=== PATIENT | male | born 1940 | race Caucasian/White ===

== ENCOUNTER 2024-01-17 11:45 | Emergency (ER) | payer MEDICARE, SELFPAY ==
[2024-01-17] VITALS (8 sets, daily range): BP systolic 149–210; BP diastolic 80–100; PULSE 71; BMI 23.8
[2024-01-17 12:09] LABS: % Basophils 0.4 % (0-2); % Eosinophils 3.3 % (0-6); % Immature Granulocytes 0.3 % (0-0.5); % Lymphocytes 11.6 % (20.5-51.1); % Monocytes 11.3 % (1.7-9.3); % Neutrophils 73.1 % (42.2-75.2); Absolute Eosinophils 0.3 10^3/uL (0-0.7); Absolute Lymphocytes 1.2 10^3/uL (1.2-3.4); Absolute Monocytes 1.2 10^3/uL (0.1-0.6); Absolute Neutrophils 7.5 10^3/uL (1.4-6.5); Hemoglobin 9.3 g/dL (13.0-18.0); Mean Corp Hgb Conc. 34.4 g/dL (33.0-37.0); Mean Corpuscular Hgb 30.9 pg (27.0-31.0); Mean Corpuscular Volume 89.7 fL (80.0-94.0); Mean Platelet Volume 9.6 fL (7.4-10.4); Nucleated Red Blood Cells % 0 % (-); Platelet Count 314 10^3/uL (130-400); Red Blood Cell Count 3.01 10^6/uL (4.70-6.10); Red Cell Dist. Width 13.7 % (11.5-14.5); White Blood Cell Count 10.3 10^3/uL (4.8-10.8)
[2024-01-17 12:52] LABS: ALT (SGPT) 15 U/L (0-50); AST (SGOT) 23 U/L (17-59); Albumin 2.6 g/dl (3.5-5.0); Alkaline Phosphatase 126 U/L (38-126); Blood Urea Nitrogen 32 mg/dl (9-20); Calcium 8.9 mg/dl (8.4-10.2); Carbon Dioxide 23 mmol/L (22-30); Chloride 107 mmol/L (98-107); Glucose 194 mg/dl (70-99); Potassium 4.6 mmol/L (3.5-5.1); Sodium 137 mmol/L (135-145); Total Bilirubin 1.5 mg/dl (0.2-1.3); Total Protein 5.3 g/dl (6.3-8.2); eGFR 37.35
--- NOTE | 2024-01-17 15:06 | ED.GENMED ---
History of Present Illness
General
Chief Complaint: Social Service Referral
Source: patient, records and family
Time Seen by Provider: 01/17/24 14:18
Travel History
Have you had any contact with someone who has COVID-19?: No
Do you have any symptoms of coronavirus? Fever > 100 degrees, chills, cough, shortness of breath, sore throat, loss of taste or smell, muscle aches, or headache?: No
History of Present Illness
History of Present Illness:
83-year-old male with past medical history of hypertension, CHF, chronic kidney disease, diabetes, previous ID status post double bypass surgery, AAA repair last Tuesday presenting to the emergency department for evaluation after he was discharged
from [facility] on Tuesday, at home has had some generalized weakness and inability to care for himself at his independent living facility. Family was concerned that patient got discharged from the hospital either too
quickly or should have been disposition to a SNF/rehab facility until he was able to care for himself. Family notes that patient has also noticed some bilateral lower extremity edema and patient has expressed some mild shortness of breath since the
surgery. Patient does note that following his AAA repair he did have an acute complication of right acute lower extremity arterial occlusion that required stenting. Patient also had some mild hematuria and had been taken off of his Eliquis due to
anemia following the surgery but has since resumed taking 1/2 tablet of his Eliquis twice daily. Family's biggest concern for bring patient to the ER today was they ultimately were hoping to get him disposition to a rehab/SNF. They did not want to
go back to his old facility due to their unhappiness with the communication from the staff there.
Past History
Past History
ED Past Medical History: Arrthythmia, CHF, HTN, IDDM, ID and Renal failure
ED Past Surgical History: Cardiac, Tonsilectomy and Other (AAA repair)
Social History
Tobacco: Former smoker
Alcohol: None
Drug: None
Personal:
Living: with family
Review of Systems
Review of Systems
All Other Systems: ROS reviewed and negative except as documented in HPI and ROS
Phy Exam
Physical Exam
Physical Exam:
GENERAL: Alert , in no apparent distress
EYE: Clear conjunctiva
NECK: Supple
ENT: o/p clr, mmm.
CARDIAC: Irregularly irregular rate and rhythm, heart rate between 75 and 85 bpm
LUNGS: Clear breath sounds bilaterally, no acute respiratory distress, no wheezes/rales/rhonchi
ABDOMEN: Soft, without focal tenderness, no r/g, no cvat
NEUROLOGICAL: Alert and oriented
SKIN: Warm and dry, skin intact.
MUSCULOSKELETAL: Edema to the bilateral lower extremities up to about one third of the lower leg, easily palpable pedal and tibial pulse to the left leg. Faintly palpable DP and PT pulses on the right which were confirmed with a Doppler. Cap
refill is approximately 2 seconds bilaterally. Sensation is grossly intact to light touch.
PSYCH: Normal and appropriate interaction.
Scores
Heart Failure Risk
Heart Failure Risk Score: Not Applicable
Heart Score for Chest Pain Patients
STEMI patient?: Not applicable
Withdrawal Assessment of Alcohol
Withdrawal Assessment Completed?: Not applicable
Course
Orders/Labs/Results
Orders:
Orders
01/17/24 12:02
CMP [Comprehensive Metabolic Panel] Urgent
Complete Blood Count/With Diff Urgent
NT-proBNP Urgent
Comment: ADD
01/17/24 14:42
Add On- LAB Urgent
Tests Added?: BNP
Case Management Consult ONCE
Case Management Consult: Discharge Planning
PT Consult [Pt Eval And Treat] Urgent
Activity Level: Ambulate
01/17/24 14:43
Electrocardiogram (*1) Urgent
Reason for Study: Shortness of Breath
EKG- Treatment ONCE
CR Chest - 2 Views Urgent
Comment:
Reason For Exam: edema, recent AAA repair
01/17/24 14:57
US Periph Venous LOWER Ext Red Urgent
Comment:
Reason For Exam: edema, recent surgery
01/17/24 15:27
Labetalol HCl [Trandate] 10 mg IV NOW STA
Abnormal Lab Results
01/17/24
12:02
RBC 3.01 L 10^6/uL
(4.70-6.10)
Hgb 9.3 L g/dL
(13.0-18.0)
Hct 27.0 L %
(39.0-52.0)
Absolute Neuts (auto) 7.5 H 10^3/uL
(1.4-6.5)
Absolute Monos (auto) 1.2 H 10^3/uL
(0.1-0.6)
Lymphocytes % 11.6 L %
(20.5-51.1)
Monocytes % 11.3 H %
(1.7-9.3)
BUN 32 H mg/dl
(9-20)
Creatinine 1.8 H mg/dL
(0.7-1.3)
Glucose 194 H mg/dl
(70-99)
Total Bilirubin 1.5 H mg/dl
(0.2-1.3)
Total Protein 5.3 L g/dl
(6.3-8.2)
Albumin 2.6 L g/dl
(3.5-5.0)
01/17/24 12:02
01/17/24 12:02
Vital Signs
Initial and Last Documented VS:
Initial Vital Signs
Temp Pulse Resp BP Pulse Ox
98.1 F 89 20 180/84 97
01/17/24 11:51 01/17/24 11:51 01/17/24 11:51 01/17/24 11:51 01/17/24 11:51
Last Documented Vital Signs
Temp Pulse Resp BP Pulse Ox
98.1 F 67 20 169/80 97
01/17/24 11:51 01/17/24 18:12 01/17/24 18:12 01/17/24 18:12 01/17/24 18:12
MDM/Problems Addressed
Differential Diagnosis Includes:
Anemia, deconditioning secondary to significant surgery, electrolyte disturbance, DVT, CHF, surgical complication
MDM/Problems Addressed:
83-year-old male presenting to the emergency department for evaluation of generalized weakness/fatigue in the setting of recent significant surgery for AAA repair with complication of acute arterial occlusion to the right lower extremity status post
stenting. Family brought patient to this facility as his kidney specialist is located here but also because they were unhappy with the disposition planning at the previous hospital. I reviewed patient's discharge summary which confirms history.
He was discharged with a creatinine of greater than 2 and a hemoglobin of 7.8. Patient did receive a blood transfusion postoperatively while there. Labs have been drawn here from triage which show a hemoglobin of 9.3 and a creatinine of 1.8 which
is closer to patient's baseline. Due to patient being on a subtherapeutic dose of Eliquis we will check an ultrasound to rule out DVT although I feel that this is less likely. I added on further cardiac tests. Case management and physical therapy
were consulted. Disposition pending.
Chronic conditions affecting care: PVD and Kidney disease
Acute Exacerbation and/or Progression of Chronic Illness: PVD
*Radiology
Radiology exam reviewed: radiology read reviewed
*Pulse Oximetry
Patient hypoxic: no
*EKG
Interpreted by ED Provider?: Yes
Comparison EKG: changes noted
Heart Rate: 82
Rate: normal
Rhythm: a-fib
[place]: normal axis
QRS Pattern: right bundle branch block
*Outreach Specialist Interpretation
Rate: normal
Rhythm: a-fib
*Critical Care Note
Total Time (30-74mins, 75-104mins- exclusive of procedures): Not Applicable
Data Reviewed
Review of Other/Old Records Reveals: Labs, Records, Operative Reports and Discharge Summary
Source: patient and records
Comment
Comment:
3:30 PM: Patient's blood pressure continuously elevated on multiple rechecks. 10 mg labetalol IV ordered. On reassessment his blood pressure was significantly improved to 140/70
4:39 PM: Informed by case management that patient was accepted to [facility]. Reports being faxed. Family to take patient from ED to SNF. BNP elevated but appears to be around baseline. Patient on torsemide 20mg QD and will continue this.
US results pending. Once resulted, patient can be discharged to SNF
Patient Management
Discussion with other providers: assisted staff
Escalation/DeEscalation of care consider admission/obs:
US negative for DVT. Patient stable for d/c home. Family to take patient to SNF. Nursing team at SNF contacted and reviewed case. Family happy with plan
ED Attending Note
-
Portions of this chart may have been created with voice recognition software.� Occasional wrong word or��sound alike� substitutions may have occurred due to the inherent limitations of voice recognition software.
Discharge Plan
Departure
Patient Disposition: Senior Living/SNF
Date of Disposition: 01/17/24
Time of Disposition: 16:43
Patient with high blood pressure during this ER visit?: Yes
Discharge Problem:
Generalized weakness, Hypertension
Instructions: BLOOD PRESSURE
Prescriptions:
No Action
insulin glargine [Lantus U-100 Insulin] 100 unit/mL Solution
20 unit SC DAILYPRN PRN (Reason: blood sugar)
polyethylene glycol 3350 [Miralax] 17 gram Powder In Packet
17 g PO DAILYPRN PRN (Reason: constipation)
cyanocobalamin (vitamin B-12) 1,000 mcg Tablet
1,000 mcg PO DAILY
hydralazine 25 mg Tablet
25 mg PO BID
famotidine [Pepcid] 20 mg Tablet
20 mg PO DAILY
tamsulosin [Flomax] 0.4 mg Capsule
0.4 mg PO DAILY
diltiazem HCl 120 mg Capsule,Extended Release 24 Hr
120 mg PO HS
cholecalciferol (vitamin D3) [Vitamin D3] 25 mcg (1,000 unit) Tablet
25 mcg PO DAILY
Eliquis 2.5 mg Tablet
2.5 mg PO BID
Trelegy Ellipta 100-62.5-25 mcg Blister With Device
1 inh INHALATION R DAILY
Ozempic 1 mg/dose (4 mg/3 mL) Pen Injector
1 mg SC TH
torsemide 20 mg Tablet
20 mg PO DAILY
atorvastatin [Lipitor] 10 mg Tablet
10 mg PO DAILY
losartan 25 mg Tablet
25 mg PO DAILY
bupropion HCl [Wellbutrin] 75 mg Tablet
150 mg PO DAILY
Referrals:
Pedro Andrew MD [Family Provider] -
Interventions
Interventions:
*Risk Screen - Suicide Last Done: 01/17/24 15:16
*General Assessment Last Done: 01/17/24 15:14
*Neglect/Abuse Screening Last Done: 01/17/24 15:17
*ED COVID-19 Vaccine History Last Done: 01/17/24 11:51
*Nursing Disposition Last Done: 01/17/24 18:12
ED-Psychological Assessment Last Done: 01/17/24 15:52
Discharge Date and Time
Discharge Date/Time: 01/17/24 18:00
Print Language: JAPANESE
[2024-01-17] MEDS: TRANDATE 10 MG IV (15:34)
--- NOTE | 2024-01-17 16:11 | CM ---
Addendum entered by Marisol Morales RN 01/17/24 16:47:
Spoke with Shira, [facility]; they are able to accept the patient today. They will need the nurse to call report to [phone], and med list & d/c summary faxed to [phone]. Shira spoke with patient's son Gerardo by phone to
discuss the prior admission details/dates. She is aware that the family will provide transport to SNF by their vehicle.
Spoke with son Gerardo (ph [phone]); he agrees to [facility] today and will transport patient in his car.
Spoke with nurse Anni Tang; she is aware that the SNF needs report called, and family will transport to SNF.
Spoke with ED Program Review Director; he is aware that the SNF needs the med list & d/c summary faxed to [phone].
Plan [facility] today with family transporting.
Original Note:
Patient who resides at [facility] here in ED for rehab placement. PT recommends skilled rehab.
Met with patient, his son Gerardo and Mabel Lilly;
the patient resides alone in an apartment at [facility].
He was discharged from [facility] in [facility] on 01/14 after having a AAA repair.
He has been weak and wobbly at home and unable to care for himself.
The patient/family are hoping he can be placed in a SNF for short term rehab somewhere between [facility].
The patient's only DME is a SPC.
He was not set up with VN from the prior hospital.
Discussed local SNFs and provided ratings. - 6 SNF referrals made.
Spoke with Shira, [facility]; she was made aware that is hoping to place the patient at SNF today from the ED, and she will review/respond to the referral today.
Plan follow up with [facility] for acceptance.
[2024-01-17 16:39] LABS: NT-proBNP 12700 pg/ml
== END 2024-01-17 18:00 ==
LOC: EMR 11:45
PROVIDERS: Emergency Medicine; EMERGENCY PHYSICIAN Student in an Organized Health Care Education/Training Program; FAMILY PHYSICIAN Internal Medicine
DX: R53.1 Weakness (principal); I13.0 Hypertensive heart and chronic kidney disease with heart failure and stage 1 through stage 4 chronic kidney disease, or unspecified chronic kidney disease; E11.22 Type 2 diabetes mellitus with diabetic chronic kidney disease; I50.9 Heart failure, unspecified; R60.0 Localized edema; N18.9 Chronic kidney disease, unspecified; E11.51 Type 2 diabetes mellitus with diabetic peripheral angiopathy without gangrene; I25.2 Old myocardial infarction; I71.40 Abdominal aortic aneurysm, without rupture, unspecified; Z60.2 Problems related to living alone; Z86.79 Personal history of other diseases of the circulatory system; Z87.891 Personal history of nicotine dependence
CPT/HCPCS: 99284; 96374; 71046; 80053; 83880; 85025; 93005; 93970

== ENCOUNTER 2024-05-24 12:53 | Outpatient (RCR) | payer MEDICARE, SELFPAY ==
[2024-05-24] MEDS: FERAHEME 117 MG IV (13:30)
[2024-05-24 13:37] VITALS: BP 163/75
[2024-05-24 14:32] VITALS: BP 171/73
[2024-05-24 14:34] VITALS: BP 173/72
== END 2024-05-25 08:37 | disposition home or self-care (01) ==
LOC: OID 12:53
PROVIDERS: ATTENDING PHYSICIAN Internal Medicine; FAMILY PHYSICIAN Internal Medicine
DX: N18.4 Chronic kidney disease, stage 4 (severe) (principal); N25.81 Secondary hyperparathyroidism of renal origin; R80.9 Proteinuria, unspecified; I10 Essential (primary) hypertension; D64.9 Anemia, unspecified; I48.0 Paroxysmal atrial fibrillation; Z79.01 Long term (current) use of anticoagulants
CPT/HCPCS: 96365; Q0138

== ENCOUNTER 2024-05-31 12:59 | Outpatient (RCR) | payer MEDICARE, SELFPAY ==
[2024-05-31] MEDS: NSS 250 IV (13:24)
[2024-05-31] MEDS: FERAHEME 117 MG IV (13:25)
[2024-05-31 13:31] VITALS: BP 138/52
== END 2024-06-01 11:18 | disposition home or self-care (01) ==
LOC: OID 12:59
PROVIDERS: ATTENDING PHYSICIAN Internal Medicine; FAMILY PHYSICIAN Internal Medicine
DX: N18.4 Chronic kidney disease, stage 4 (severe) (principal); R80.9 Proteinuria, unspecified; D64.9 Anemia, unspecified
CPT/HCPCS: 96361; 96365; Q0138

== ENCOUNTER → 2024-09-25 10:12 | Outpatient (REF) | payer MEDICARE, SELFPAY | LOC: HWRAD 10:12 | PROVIDERS: ATTENDING PHYSICIAN Internal Medicine; FAMILY PHYSICIAN Internal Medicine | DX: N18.4 Chronic kidney disease, stage 4 (severe) (principal) | CPT/HCPCS: 93975 ==

== ENCOUNTER 2025-05-29 22:03 | Inpatient (IN) | payer MEDICARE, SELFPAY ==
[2025-05-29 17:11] VITALS: BP 175/105
[2025-05-29 17:30] LABS: Hematocrit 29.2 % (39.0-52.0); Hemoglobin 10.1 g/dL (13.0-18.0); Mean Corp Hgb Conc. 34.6 g/dL (33.0-37.0); Mean Corpuscular Volume 90.4 fL (80.0-94.0); Nucleated Red Blood Cells % 0 % (-); Platelet Count 237 10^3/uL (130-400); Red Cell Dist. Width 13.6 % (11.5-14.5)
[2025-05-29 18:02] LABS: ALT (SGPT) 11 U/L (0-50); AST (SGOT) 18 U/L (17-59); Albumin 3.2 g/dl (3.5-5.0); Alkaline Phosphatase 145 U/L (38-126); Blood Urea Nitrogen 28 mg/dl (9-20); Calcium 8.4 mg/dl (8.4-10.2); Carbon Dioxide 24 mmol/L (22-30); Chloride 88 mmol/L (98-107); Glucose 126 mg/dl (70-99); Potassium 5.3 mmol/L (3.5-5.1); Sodium 117 mmol/L (135-145); Total Protein 5.8 g/dl (6.3-8.2); eGFR 20.94
[2025-05-29 18:17] VITALS: BP 173/65
[2025-05-29 18:30] VITALS: BP 160/69
[2025-05-29 19:00] VITALS: BP 166/73
--- NOTE | 2025-05-29 19:27 | ED.GENMED ---
History of Present Illness
General
Chief Complaint: Abdominal Symptoms
Source: patient
Exam Limitations: none
Time Seen by Provider: 05/29/25 19:01
Nursing documentation reviewed up to this point in time: agreed with
History of Present Illness
History of Present Illness:
Note:
CHIEF COMPLAINT(S)
Nausea and constipation
HISTORY OF PRESENT ILLNESS
The patient is an 84-year-old male presenting with nausea and constipation. The patient reports vomiting three times a few days ago, which he attributes to something he ate. He denies diarrhea. The patient has not been consuming much liquids or
eating regularly. The patient reports feeling tired and constipated but denies any pain. He mentions consistent strength training by going to the gym twice a week, indicating good baseline strength. The primary reason for the visit was the sensation
of 'stringiness' related to his bowel movements, indicating constipation and possibly incomplete bowel evacuation. The patient has a known history of stage four chronic kidney disease. His serum sodium level is critically low at 117 mmol/L, which he
has not experienced before.
CHRONIC MEDICAL CONDITIONS SIGNIFICANTLY AFFECTING CARE
- Stage four chronic kidney disease
PHYSICAL EXAM
General: The patient is alert and not in acute distress.
Skin: Warm, dry.
Head: Normocephalic, atraumatic.
Neck: Supple, trachea midline.
Eye Ears, nose, mouth and throat: Oral mucosa moist.
Cardiovascular: Normal peripheral perfusion, No edema.
Respiratory: Respirations are non-labored.
Gastrointestinal: Abdomen nondistended.
Back: Normal range of motion, Normal alignment.
Musculoskeletal: Normal range of motion, normal strength.
Neurological: Alert and oriented to person, place, time, and situation, No focal neurological deficit observed.
Psychiatric: Cooperative, appropriate mood & affect.
PROBLEM LIST
Acute:
- Hyponatremia
- Constipation
- Nausea
Chronic:
- Stage four chronic kidney disease
PLAN
- Administer intravenous fluids to address hyponatremia.
- Admit the patient to the hospital for further management and observation.
- Perform a computed tomography scan of the abdomen to evaluate the cause of constipation and assess for any potential obstructive pathology.
- Obtain a urine sample for further evaluation.
DIFFERENTIAL DIAGNOSIS
The Differential Diagnosis includes, in no particular order and is not limited to:
1. Hyponatremia due to chronic kidney disease
2. Dehydration
3. Acute or chronic intestinal obstruction
4. Gastroenteritis
5. Medication side effects (if applicable)
6. Secondary to dietary intake
7. Dysmotility disorders
8. Malabsorption syndromes
9. Uremia due to chronic kidney disease
10. Adverse effects of diuretics (if the patient was on them previously)
CARE-UPDATE
05/29/25 - 23:56
3% normal saline initiated at 20 mL/hour following discussion with Dr. Boyle, leather tanner, due to no acute findings in CT a/p.
Disposition:
SUMMARY OF ENCOUNTER
The patient, an 84-year-old male, was evaluated in the emergency department due to concerns over nausea, vomiting, and constipation. Notable attention was given to his serum sodium level, critically low at 117 mmol/L, suggestive of acute
hyponatremia. He also reported urinary retention, and further analysis indicated acute on chronic renal failure potentially exacerbated by dehydration and inadequate fluid intake. Given the patients history of stage four chronic kidney disease and
current acute issues, it was decided to admit him for close monitoring, intravenous fluid administration, and further evaluation.
DISPOSITION
Admit
MANAGEMENT OF THE PATIENTS CARE WAS DISCUSSED WITH
Care was discussed with Dr. Boyle, a leather tanner, to manage the patients hyponatremia and kidney function.
PLAN
- Initiate intravenous fluids, specifically 3% normal saline, to address hyponatremia, in collaboration with nephrology.
- Admit the patient for further evaluation and management, including close monitoring of renal function.
- Conduct a CT scan of the abdomen to further investigate the cause of constipation and evaluate for potential obstructions.
INDEPENDENT REVIEW OF LABS AND INTERPRETATION OF TESTS
My independent review of the BMP indicates acute hyponatremia with a serum sodium level at 117 mmol/L and decreased renal function consistent with prior chronic kidney disease findings.
MEDICAL DECISION MAKING
- Complexity of Data Reviewed: Chronic conditions affecting care include stage four chronic kidney disease. Differential diagnosis includes hyponatremia due to chronic kidney disease, dehydration, acute or chronic intestinal obstruction among others.
- Data:
- Category 1: Labs, including BMP, reviewed to assess the patients electrolyte imbalances and renal function decline.
- Category 3: Discussion of management with nephrology regarding fluid administration and further plan of care.
DIAGNOSIS
- Acute hyponatremia (ICD-10: E87.1)
- Urinary retention (ICD-10: R33.8)
- Acute on chronic renal failure (ICD-10: N17.9)
Past History
Past History
ED Past Medical History: Arrthythmia, CHF, HTN, IDDM, OR and Renal failure
ED Past Surgical History: Cardiac, Tonsilectomy and Other (AAA repair)
Social History
Tobacco: Former smoker
Alcohol: None
Drug: None
Personal:
Living: with family
Phy Exam
Physical Exam
Physical Exam:
.
Course
Orders/Labs/Results
Orders:
Orders
05/29/25 Dinner
1800 calorie (15 carb) Diabetic
At Your Request: Full Participation
Fluid Restriction: 1200 mL/day (40 oz)
Diabetic Diet: Potassium, 2 Gram
05/29/25 17:20
CMP [Comprehensive Metabolic Panel] Urgent
Complete Blood Count/With Diff Urgent
Serum Osmolality Urgent
Comment: ADD ON
05/29/25 19:19
Electrocardiogram (*1) Stat
Reason for Study: Other
Other Reason for Exam: hyponatremia
Electrocardiogram (*1) Urgent
Reason for Study: Other
Other Reason for Exam: hyponatremia
EKG- Treatment ONCE
05/29/25 19:20
CT Abd/pel Without Iv Or Oral Urgent
Comment:
Reason For Exam: constipation, lower abd discomfort
05/29/25 19:29
Osmolality, Random Urine Urgent
Date Specimen was Collected: 05/29/25
Time Specimen was Collected: 19:23
Urinalysis Reflex To Culture Urgent
Date Specimen was Collected: 05/29/25
Time Specimen was Collected: 19:23
Urine Microscopic Reflex Cult Urgent
Urine Sodium Urgent
Date Specimen was Collected: 05/29/25
Time Specimen was Collected: 19:23
Urine Culture Urgent
SARAH Source: U
Specimen Description:
Date Specimen was Collected: 05/29/25
Time Specimen was Collected: 19:23
05/29/25 19:31
Bladder Scan- Treatment ONCE
05/29/25 20:46
Bhakta Placement- Treatment ONCE
Reason for insertion: Acute Retention
05/29/25 21:26
Admit/Transfer Patient As Directed
Co-Sign Provider:
Level of Care: Inpatient admission
Assign to:: IMU- Intermediate Care
Physician / Group: Yoel
Diagnosis: Hyponatremia
Reason for Hospitalization: Hyponatremia, SANDRA on CKd
Expected length of stay greater than two midnights?: Yes
ELOS- Estimated Length of Stay in days: 2
I certify the patient meets the requirements for IP care: Yes
PRN Pain Medication Management As Directed
May give lesser potent ordered pain med per pt: Yes
preference::
Protocol:: Medication orders for pain may be administered in a
manner that supports deferring to patient preference
when the pt is:
- Requesting an ordered lesser potent pain medication.
Least to most potent pain medications are defined
as: acetaminophen < NSAID < tramadol < opioids
(morphine, oxycodone, hydromorphone).
- Requesting a lesser dose of the same medication IF
ORDERED.
- Requesting a less intrusive route of administration
if both routes are prescribed by the provider (PO <
IV).
05/29/25 21:28
Code Status As Directed
Resuscitation Status: Full Code
05/29/25 22:00
3% Sodium Chloride 250 ml [Sodium Chloride 3%] 250 ml IV ONCE
05/29/25 22:02
Osmolality, Random Urine Stat
Date Specimen was Collected: 05/29/25
Time Specimen was Collected: 22:00
05/29/25 22:45
Acetaminophen [Tylenol] 650 mg PO Q4HPRN PRN
Bisacodyl [Dulcolax] 10 mg RECTAL [id number] PRN
CefTRIAXone [Rocephin] 1,000 mg IV NOW STA
Docusate W/Senna [Senokot-S] 1 tablet PO BIDPRN PRN
HydrALAZINE [Apresoline] 10 mg IV Q6HPRN PRN
HydrALAZINE [Apresoline] 50 mg PO TID
Ipratropium/Albuterol Sulfate [Duoneb] 3 ml INH R Q4HPRN PRN
Ondansetron Injectable [Zofran] 4 mg IV Q6HPRN PRN
Polyethylene Glycol Powder [Miralax] 17 grams PO DAILYPRN PRN
05/29/25 22:45
Echo 2D MMode Color/Doppler Routine
Reason for Study: atrial fibrillation
NEPHROLOGY CONSULT Routine
Consulting Provider: Robin Whitmore V.
Was physician already notified: Yes
VTE Contraindication Routine
VTE Mechanical Device Contraindication: Medical Contraindication
Pharmocologic Contraindication: Medical Contraindication
Activity As Directed
Activity Level: With Assistance
Bedside Glucose Monitoring As Directed
Frequency: AC&HS
Bhakta Catheter [Catheter- Indwelling] As Directed
Reason for insertion: Acute Retention
Discontinue Date/Time: 06/01/25 0600
Intake/ Output As Directed
Frequency: Per unit guidelines
Vital Signs As Directed
Frequency: Per unit guidelines
Weight As Directed
Frequency: Daily
Pulse Ox/spot Check [RESP] Routine
Quantity: 1
05/29/25 23:45
Basic Metabolic Panel Q6H
05/30/25 06:00
Complete Blood Count/No Diff IN AM
Cortisol, Random IN AM
Magnesium IN AM
TSH Reflex To Free T4 IN AM
05/30/25 07:30
Insulin Aspart Corrective Low [Novolog Flexpen-Low Resistance] See Protocol SC AC
05/30/25 08:00
Apixaban [Eliquis] 2.5 mg PO BID
Atorvastatin [Lipitor] 20 mg PO DAILY
Cholecalciferol (Vitamin D3) [VITAMIN D3 (cholecalciferol)] 25 mcg PO DAILY
Famotidine [Pepcid] 20 mg PO BID
Tamsulosin [Flomax] 0.4 mg PO DAILY
05/30/25 22:00
CefTRIAXone [Rocephin] 1,000 mg IV Q24H
Abnormal Lab Results
05/29/25 05/29/25 05/29/25
17:20 19:29 22:02
WBC 13.1 H 10^3/uL
(4.8-10.8)
RBC 3.23 L 10^6/uL
(4.70-6.10)
Hgb 10.1 L g/dL
(13.0-18.0)
Hct 29.2 L %
(39.0-52.0)
MCH 31.3 H pg
(27.0-31.0)
Abs Immat Gran (auto) 0.1 H 10^3/uL
(0-0.05)
Absolute Neuts (auto) 10.0 H 10^3/uL
(1.4-6.5)
Absolute Monos (auto) 1.1 H 10^3/uL
(0.1-0.6)
Immature Gran % 0.6 H %
(0-0.5)
Neutrophils % 76.6 H %
(42.2-75.2)
Lymphocytes % 12.9 L %
(20.5-51.1)
Sodium 117 L* mmol/L
(135-145)
Potassium 5.3 H mmol/L
(3.5-5.1)
Chloride 88 L mmol/L
(98-107)
BUN 28 H mg/dl
(9-20)
Creatinine 2.9 H mg/dL
(0.7-1.3)
Glucose 126 H mg/dl
(70-99)
Serum Osmolality 258 L mOsm/kg
(275-300)
Alkaline Phosphatase 145 H U/L
(38-126)
Total Protein 5.8 L g/dl
(6.3-8.2)
Albumin 3.2 L g/dl
(3.5-5.0)
Ur Occult Blood Reflex 1+ A
(Negative)
Leukocyte Esterase Rfl 3+ A
(Negative)
Urine RBC 3-6 A /HPF
(0-2)
Urine Bacteria (Reflex) Many A
(Negative)
Urine Osmolality 116 L mOsm/kg 119 L mOsm/kg
(300-900) (300-900)
Urine Sodium 23 L mmol/L
(30-90)
Urine Albumin (Reflex) 2+ A
(Neg - Trace)
05/29/25 17:20
05/29/25 17:20
Vital Signs
Initial and Last Documented VS:
Initial Vital Signs
Temp Pulse Resp BP Pulse Ox
98.0 F 64 20 175/105 99
05/29/25 17:11 10/01/25 17:11 05/29/25 17:11 05/29/25 17:11 05/29/25 17:11
Last Documented Vital Signs
Temp Pulse Resp BP Pulse Ox
97.6 F 73 15 180/68 98
05/29/25 22:58 05/29/25 22:30 05/29/25 22:30 05/29/25 19:30 05/29/25 22:30
*Pulse Oximetry
SaO2: 99
Patient hypoxic: no
*Critical Care Note
Total Time (30-74mins, 75-104mins- exclusive of procedures): 34
comment:
Critical care statement: A total of 34 minutes of critical care time was provided for this patient. This includes management of unstable vital signs, evaluation of the patient at bedside, reviewing the patient's pertinent medical records, discussion
with consultants, review of old EKGs and review of pertinent medical records. This time with separate from time utilized to perform the aforementioned documented procedures
ED Attending Note
-
Portions of this chart may have been created with voice recognition software.� Occasional wrong word or��sound alike� substitutions may have occurred due to the inherent limitations of voice recognition software.
Discharge Plan
Departure
Patient Disposition: Admit
Date of Disposition: 05/29/25
Time of Disposition: 20:47
Admit to: ICU
Presentation/result/management discussed w/ accepting MD/DO: Hospitalist
Patient with high blood pressure during this ER visit?: Yes
Condition: Fair
Discharge Problem:
Acute hyponatremia, Acute on chronic kidney failure, Acute hyperkalemia, Constipation, Acute urinary retention
Interventions
Interventions:
*Risk Screen - Suicide Last Done: 05/29/25 22:56
*General Assessment Last Done: 05/29/25 17:11
*Neglect/Abuse Screening Last Done: 05/29/25 22:56
*ED- Fall Risk Assessment Last Done: 05/29/25 22:56
*ED COVID-19 Vaccine History Last Done: 05/29/25 22:56
*ED Influenza Vaccine History Last Done: 05/29/25 22:56
*Nursing Disposition Last Done: 05/29/25 22:56
MZ-Hciehk-Gctjooxgny Assessment Last Done: 05/29/25 21:25
[2025-05-29 19:30] VITALS: BP 180/68
[2025-05-29 19:37] LABS: Urine Character Slightly Cloudy (Clear)
[2025-05-29 19:45] LABS: Urine Squamous Cell 0-2 /LPF (Few)
--- NOTE | 2025-05-29 20:58 | HPS.HSE ---
Family Physician
-
Family Physician: NOT KNOW UNKNOWN - PT DOES
Chief Complaint
-
Abdominal symptoms
History of Present Illness
This is a 84-year-old male with past medical history significant for CAD status post CABG, hypertension, hyperlipidemia, CKD with baseline creatinine around 2.0, on anticoagulation for prior CVAs, COPD presenting to the emergency department with
constipation, urinary symptoms and feeling of dehydration.
Patient and family reports that they have been having urinary symptoms for a few weeks now particularly 2 weeks. He has had constipation. He is to the nocturia reports going to the bathroom about once every hour overnight. Over the last 2 to 3
days he has been trying to hydrate himself at night drinking diluted crystal lemonade. He is unable to tell me exactly how many carbs he takes overnight. He denies abdominal pain, distention, nausea or vomiting. He denies having fevers. Son
reports that patient may have had chills because when he visited him yesterday he is thermostat was set to over 80 �F.
In the emergency department was able to void and reported to void 800 mL with residual of 343ml.
Patient reports that that he often gets indication of atrial fibrillation on his home monitor but he denies any official diagnosis of A-fib in the past. He denies palpitations lightheadedness dizziness. He denies having any chest pain. He denies
ankle swelling. He denies shortness of breath or dyspnea on exertion.
In the ED was hypertensive to 173/80 with a pulse rate of 56 and was satting 97% on room air. ECG with rate controlled atrial fibrillation and right bundle. White count was 10.1 hemoglobin 10.1 and platelet count of 237. Sodium was notable at 117
with a potassium of 5.3. BUN and creatinine where 28 and 2.9. Glucose was 126. Serum osmolality was low. UA was markedly positive. Urine sodium was 23 with a urine osmolality of 110.
CT of the abdomen was unremarkable: No renal or ureteral calculus. No bladder calculus. No obstructive uropathy. Bilateral renal cysts. Small amount of gas within the bladder. Possible considerations include iatrogenic, infection by gas producing
organism, or enterovesical fistula.
Diverticulosis without acute diverticulitis. No bowel obstruction. No evidence to suggest significant constipation.
COPD.
Aortic aneurysm with [place] aneurysm sac 5.5 cm. Bifurcated endovascular stent graft in place.
Medical History
Past Medical History
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
years ago. )
Past Surgical History: Reports Cardiac (X2 vessel repair 7 years ago) and Other (superfical vein surgery to foot per patient)
Social History
Tobacco: Former Smoker (45-year 1 pack/day stopped 2 months ago June 2022)
Alcohol: None
Drug: None
Personal: Single
Employment: Retired
Family History
Family History: CAD (Mother age 80 [place])
Allergies / Home Medications
Allergies reflects when Allergies were last updated in [facility].
Home Medications with original date entered in [facility]
Allergy/Medication List:
Allergies
Allergy/AdvReac Type Severity Reaction Status Date / Time
No Known Allergies Allergy Verified 05/29/25 17:11
Home Medications
apixaban 2.5 mg tablet (Eliquis) 2.5 mg PO BID 01/17/24
cholecalciferol (vitamin D3) 25 mcg (1,000 unit) tablet (Vitamin D3) 25 mcg PO DAILY 01/17/24
famotidine 20 mg tablet (Pepcid) 20 mg PO BID 01/17/24
fluticasone fur. 100 mcg-umeclid 62.5 mcg-vilant 25 mcg inhalat.powder (Trelegy Ellipta) 1 inh inhalation R DAILY 01/17/24
semaglutide 1 mg/dose (4 mg/3 mL) subcutaneous pen injector (Ozempic) 1 mg SC TH 01/17/24
tamsulosin 0.4 mg capsule (Flomax) 0.4 mg PO DAILY 01/17/24
atorvastatin 20 mg tablet (Lipitor) 20 mg PO DAILY 05/29/25
hydralazine 50 mg tablet 50 mg PO BID 05/29/25
losartan 100 mg tablet 100 mg PO DAILY 05/29/25
Medications on admission are unable to be verified or confirmed at this time.
Review of Systems
-
History Source: Patient and Family
Constitutional: Reports No Symptoms
EENT: Reports No Symptoms
Respiratory: Reports No Symptoms
Abdomen/GI: Reports Constipated
: Reports Frequency
Musculoskeletal: Reports No Symptoms
Skin: Reports No Symptoms
Neurological: Reports No Symptoms
Endocrine: Reports No Symptoms
Hematologic/Lymphatic: Reports No Symptoms
Psych: Reports No Symptoms
Physical Exam
Vital Signs
Vital Signs
Temp Pulse Resp BP Pulse Ox
98.0 F 56 26 173/65 99
05/29/25 17:11 05/29/25 18:27 05/29/25 18:17 05/29/25 18:17 05/29/25 19:28
Physical Exam
General: No Apparent Distress, Comfortable and Conversant; No Fever or Chills
HEENT: NormoCephalic, Anicteric, Moist mucous membranes, PERRLA and [place] Conjunctivae
Respiratory: Rales (Fine bilateral bases)
Cardiac: S1/S2 and Irregular Rhythm; No Murmur, Rub, Gallop, Peripheral Edema or JVD
Breast: Deferred by me
GI: Soft, Non Tender, Non Distended, Normal Bowel Sounds and No Hepatosplenomegaly
Rectal: Deferred by Provider
Genito-urinary: Deferred by me
Musculoskeletal: No Clubbing, No Cyanosis and No Edema
Skin: Warm and Dry; No Rash or Jaundice
Neuro: AO x 3, No Motor Deficits, Nonfocal/grossly intact and No Sensory Deficits; No Slurred Speech, Facial Droop or Tremors
Psych: Calm
Laboratory Results
-
05/29/25 17:20
05/29/25 17:20
Laboratory Results
Total Bilirubin 0.7 mg/dl (0.2-1.3) 05/29/25 17:20
AST 18 U/L (17-59) 05/29/25 17:20
ALT 11 U/L (0-50) 05/29/25 17:20
Alkaline Phosphatase 145 U/L (38-126) H 05/29/25 17:20
Data Reviewed
-
CT Scan: Report Reviewed by me
Medical Tests (Nuc Med, Echo, EKG etc): Image Personally Visualized and interpreted
Lab Data: Labs Reviewed by me
Old Records: Reviewed
Impression/Plan
-
IMPRESSION:
This is a 84-year-old with past medical history significant for CKD with baseline creatinine of around 2.5, prior CVA on anticoagulation with apixaban, BPH, COPD not on home O2, hypertension, CAD status post CABG, history of CHF who presents to the
emergency department with complains of constipation as well as urinary frequency was found to be SANDRA with severe hyponatremia. Patient is alert and oriented x 3. No focal neurological deficits.
PLAN:
Hyponatremia -suspect multifactorial. SANDRA in the setting of urinary retention, self hydration with hypotonic fluids and possibly SIADH. He is hypertensive. Likely euvolemic to hypervolemic.
-Admit to IMU
-Discussed with nephrology
-Urinary catheter placed
-Started on hypertonic saline 3%
-BMP every 4 to 6 hours
-His urine is currently very dilute appearing which may be a post obstructive diuresis versus polyuria from correction of his hyponatremia
-Fluid restriction
-Orthostatic vital signs, check TSH
-Nephrology consulted
Urinary retention -positive UA, greater than 300 cc postvoid residual after 800. Patient on tamsulosin presumed for BPH
- Urinary catheter placed
- Urine and blood cultures
- Start IV ceftriaxone
- Continue tamsulosin
- Monitor for bleeding
Atrial fibrillation -resumed new onset although patient reports seeing indication of atrial fibrillation on his monitor at home. No prior diagnosis. He is rate controlled with a pulse in the 50s to 60s.
- Continue his Eliquis for now
- No indication for additional rate agent
- Get echocardiogram
- Cardiology consult
Hypertension
- Continue hydralazine to 3 times daily
- Hold losartan for now
COPD -stable
-Continue Trelegy
DVT prophylaxis�on apixaban
CODE STATUS�full code
[2025-05-29] MEDS: SODIUM CHLORIDE 3% 250 IV (22:03)
[2025-05-29 22:58] VITALS: BMI 25.0
[2025-05-29 23:01] VITALS: BP 182/55
[2025-05-29] MEDS: APRESOLINE 50 MG PO (23:50)
[2025-05-29] MEDS: ROCEPHIN 1000 MG IV (23:51)
[2025-05-29] MEDS: STERILE WATER FOR INJECTION 10 ML IV (23:51)
[2025-05-30] VITALS (17 sets, daily range): BP systolic 80–196; BP diastolic 44–96; BMI 25.0
[2025-05-30 00:19] LABS: Glucose - Point of Care 108 mg/dl (70-99)
[2025-05-30 01:52] LABS: Blood Urea Nitrogen 29 mg/dl (9-20); Calcium 8.8 mg/dl (8.4-10.2); Carbon Dioxide 29 mmol/L (22-30); Chloride 93 mmol/L (98-107); Estimated Creatinine Clearance 15 ml/min; Glucose 107 mg/dl (70-99); Potassium 5.5 mmol/L (3.5-5.1); Sodium 124 mmol/L (135-145); eGFR 20.94
[2025-05-30 04:55] LABS: Hematocrit 29.3 % (39.0-52.0); Hemoglobin 10.2 g/dL (13.0-18.0); Mean Corp Hgb Conc. 34.8 g/dL (33.0-37.0); Mean Corpuscular Volume 90.2 fL (80.0-94.0); Platelet Count 252 10^3/uL (130-400); Red Cell Dist. Width 13.6 % (11.5-14.5)
[2025-05-30 05:13] LABS: Magnesium 2.2 mg/dl (1.6-2.3)
[2025-05-30 05:45] LABS: Cortisol, Random 15.7 ug/dl
[2025-05-30 06:38] LABS: Blood Urea Nitrogen 28 mg/dl (9-20); Calcium 9.0 mg/dl (8.4-10.2); Carbon Dioxide 26 mmol/L (22-30); Chloride 94 mmol/L (98-107); Estimated Creatinine Clearance 14 ml/min; Glucose 122 mg/dl (70-99); Potassium 5.7 mmol/L (3.5-5.1); Sodium 125 mmol/L (135-145); eGFR 19.33
[2025-05-30] MEDS: APRESOLINE 10 MG IV (07:08)
[2025-05-30 07:50] LABS: Glucose - Point of Care 131 mg/dl (70-99)
[2025-05-30] MEDS: SPIRIVA RESPIMAT 2.5 MCG 2 PUFF INH (08:00)
[2025-05-30] MEDS: SYMBICORT 80/4.5 MCG INHALER 2 PUFF INH ×2 (08:01→20:34)
--- NOTE | 2025-05-30 08:46 | W.PN.HOSP.TC ---
Today's Communication/Plan
-
Continue court monitor.
[place] kidney function and potassium.
Added Cardizem
Assessment / Plan
Assessment / Plan
Impression:
This is a 84-year-old with past medical history significant for CKD with baseline creatinine of around 2.5, prior CVA on anticoagulation with apixaban, BPH, COPD not on home O2, hypertension, CAD status post CABG, history of CHF who presents to the
emergency department with complains of constipation as well as urinary frequency was found to be SANDRA with severe hyponatremia. Patient is alert and oriented x 3. No focal neurological deficits.
Assessment/plan:
Hyponatremia -
Secondary to self hydration with hypotonic fluids.
Admitted to IMU
Urinary catheter placed
Started on hypertonic saline 3%
Sodium level improved
Appreciate nephrology input.
Hyperkalemia
Continue to monitor.
Hold losartan
Acute kidney injury on chronic kidney disease stage IV
Bhakta catheter inserted.
Hold losartan
consulted nephrology
Urinary retention -
Urinary catheter placed
Acute UTI
Urine culture negative bacilli
Pending final urine culture
Continue Rocephin
Paroxysmal A-fib-
Patient has history of A-fib.
Noted on admission of August 2022
Currently sinus rhythm
Continue Eliquis
Added cardiazem
-echocardiogram shows:
1. Ejection fraction is greater than 75% by visual assessment.
2. Right ventricular size and systolic function are within normal limits.
3. Trace mitral valve regurgitation.
4. Compared to a prior transthoracic echocardiogram study from 09/27/22, no significant changes are seen.
Hypertension
- Continue hydralazine to 3 times daily
- Hold losartan for now
-added Cardizem for blood pressure rate control
COPD -stable
-Continue Trelegy
Anemia.
Possible anemia of chronic disease.
Continue to monitor hemoglobin
CODE STATUS: Full code
DVT prophylaxis: apixaban
Diet: Regular diet
Disposition: Monitor potassium level and kidney function
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
Total time spent on today's encounter was 65 minutes which included time spent in counseling the patient/family regarding diagnosis and treatment plan as listed above, goals of care, and symptom management. Case was discussed with nursing staff,
specialists, and care coordinators/case management. All labs and imaging personally reviewed by me. Remainder the time spent in detailed review of previous records, lab data, imaging, and other medical provider documentation.
Anticipated Discharge: > 48 hours
Subjective/Interval History
-
Date of Service: May 30, 2025
Overall patient improving, denies chest pain or shortness of breath.
Sodium level improved.
Objective Data
-
Labs:
Laboratory Results
05/30/25 05/30/25
01:11 04:28
WBC 10.2
Hgb 10.2 L
Hct 29.3 L
Plt Count 252
Sodium 124 L 125 L
Potassium 5.5 H 5.7 H
Chloride 93 L 94 L
Carbon Dioxide 29 26
BUN 29 H 28 H
Creatinine 2.9 H 3.1 H
Glucose 107 H 122 H
Calcium 8.8 9.0
Vital Signs:
Vital Signs
Temp Pulse Resp BP Pulse Ox
97.5 F 102 14 196/96 98
05/30/25 07:38 05/30/25 08:07 05/30/25 08:07 05/30/25 07:08 05/30/25 08:07
I&O
05/29/25 05/30/25 05/31/25
06:59 06:59 06:59
Output Total 1400 / 1400
Balance -1400 / -1400
Physical Exam
-
General: Well Developed, Well Nourished, No Apparent Distress and Comfortable
HEENT: Normocephalic, Atraumatic, Moist Mucous Membranes, No Ptosis, PERRLA and Nose Appears Normal
Respiratory: Clear to Auscultation and Non Labored Respirations
Cardiac: Regular Rhythm and S1/S2
Breast: Deferred by me
GI: Soft, Nontender, Nondistended and Normal Bowel Sounds
Genito-urinary: No Costovertebral Tender
Musculoskeletal: No Clubbing, No Cyanosis and No Edema
Skin: Warm
Neuro: Awake, Alert, Oriented, AO x 3 and No Motor Deficits
Psych: Calm
Data Reviewed
-
Diagnostic Radiology: Image personally visualized and interpreted and Report Reviewed by me
CT Scan: Image personally visualized and interpreted and Report Reviewed by me
Ultrasound: Image personally visualized and interpreted and Report Reviewed by me
MRI: Image personally visualized and interpreted and Report Reviewed by me
Medical Tests (Nuc Med, Echo etc): Image personally visualized and interpreted and Report Reviewed by me
Labs: Labs Reviewed by me
Old Records: Reviewed
--- NOTE | 2025-05-30 09:08 | W.CON.NEPH ---
Consultation
-
Date/Time Consultation Requested: 05/30/25 7:30 AM
Date/Time Consultation Performed: 05/30/25 9:00 AM
Requesting Provider: Dr. Chacko
Performing Provider: Dr. Whitmore
Reason for Consultation: Hyponatremia/acute kidney injury
Medical History
-
Chief Complaint: Hyponatremia/acute kidney injury
History of Present Illness:
The patient is an 84-year-old male with a past medical history of CKD stage IIIb who maintains a baseline creatinine around 2. He has a history of hypertension and is maintained on losartan and hydralazine. He is chronically anticoagulated with
Eliquis for CVA. He has a significant history of coronary artery disease and is status post CABG. He presented to the emergency room last evening with constipation urinary symptoms. He has had frequent urination every hour through the night. He
has been trying to increase his fluid intake due to his polyuria. In the emergency room he was hypertensive with a blood pressure of 173/80. EKG noted rate controlled atrial fibrillation. He was hyponatremic with a serum sodium level of 117 and
an acute renal Furth a creatinine of 3 off his baseline of 2. A CT of his abdomen was obtained which did not know any stone or mass or obstructive uropathy. 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 There was however a small amount of gas
noted within the bladder. Hypertonic saline was administered last evening in the emergency room at my direction via phone call. We were consulted for his hyponatremia and acute on chronic kidney disease.
Past Medical History
Reports Arrhythmia (Atrial fibrillation) and Other (COPD, former smoker 45 years 1 pack/day stopped 2 months ago CAD [place]//CABG x2 vessel 7 years ago, HTN, arthritis, hearing impaired bilateral CVA x5 on current Eliquis therapy 8 years ago. ) CKD
stage IIIb with baseline around 2
Past Surgical History: Reports Cardiac (X2 vessel repair 7 years ago) and Other (superfical vein surgery to foot per patient), endovascular stent
Social History
Tobacco: Former Smoker
Alcohol: None
Drug: None
Personal: Single
Family History
CAD
Allergies / Home Medications
Allergy/AdvReac Type Severity Reaction Status Date / Time
No Known Allergies Allergy Verified 05/29/25 17:11
�Medication �Instructions �Recorded �Confirmed �Type
apixaban 2.5 mg tablet (Eliquis) 2.5 mg PO BID Blood Clot 01/17/24 05/29/25 History
Prevention/Tx
cholecalciferol (vitamin D3) 25 25 mcg PO DAILY Supplement 01/17/24 05/29/25 History
mcg (1,000 unit) tablet (Vitamin
D3)
famotidine 20 mg tablet (Pepcid) 20 mg PO BID Gastrointestinal Issue 01/17/24 05/29/25 History
fluticasone fur. 100 mcg-umeclid 1 inh inhalation R DAILY 01/17/24 05/29/25 History
62.5 mcg-vilant 25 mcg Lung/Breathing Issues
inhalat.powder (Trelegy Ellipta)
semaglutide 1 mg/dose (4 mg/3 mL) 1 mg SC TH Diabetes 01/17/24 05/29/25 History
subcutaneous pen injector (Ozempic)
tamsulosin 0.4 mg capsule (Flomax) 0.4 mg PO DAILY Urinary Issue 01/17/24 05/29/25 History
atorvastatin 20 mg tablet (Lipitor) 20 mg PO DAILY High Cholesterol 05/29/25 05/29/25 History
hydralazine 50 mg tablet 50 mg PO BID Blood Pressure 05/29/25 05/29/25 History
losartan 100 mg tablet 100 mg PO DAILY Blood Pressure 05/29/25 05/29/25 History
Review of Systems
-
History Source: Patient
All other systems: Negative unless noted
Abdomen/GI: Constipated
: Other (Nocturia)
Physical Exam
Vital Signs
Vital Signs
Temp Pulse Resp BP Pulse Ox
97.5 F 102 14 196/96 98
05/30/25 07:38 05/30/25 08:07 05/30/25 08:07 05/30/25 07:08 05/30/25 08:07
Lab Results
05/30/25 04:28
05/30/25 04:28
WBC 10.2 10^3/uL (4.8-10.8) 05/30/25 04:28
RBC 3.25 10^6/uL (4.70-6.10) L 05/30/25 04:28
Hgb 10.2 g/dL (13.0-18.0) L 05/30/25 04:28
Hct 29.3 % (39.0-52.0) L 05/30/25 04:28
Plt Count 252 10^3/uL (130-400) 05/30/25 04:28
Sodium 125 mmol/L (135-145) L 05/30/25 04:28
Potassium 5.7 mmol/L (3.5-5.1) H 05/30/25 04:28
Chloride 94 mmol/L (98-107) L 05/30/25 04:28
Carbon Dioxide 26 mmol/L (22-30) 05/30/25 04:28
BUN 28 mg/dl (9-20) H 05/30/25 04:28
Creatinine 3.1 mg/dL (0.7-1.3) H 05/30/25 04:28
eGFR 19.33 05/30/25 04:28
Glucose 122 mg/dl (70-99) H 05/30/25 04:28
Calcium 9.0 mg/dl (8.4-10.2) 05/30/25 04:28
Albumin 3.2 g/dl (3.5-5.0) L 05/29/25 17:20
Physical Exam
General: AOx3, Nontoxic , NAD
HEENT: PERRL, EOMI, Anicteric, Conjunctivae Clear, Ear/Nose Intact, Hearing Normal, Oropharynx Clear/Moist, Dentition Intact, Facial Symmetry, Neck Supple, Neck: Trachea Midline, No JVD and No Thyromegaly, no Bruits
Respiratory: Clear to auscultation bilaterally with normal lung excursion
Cardiac: S1-S2 regular with occasional ectopy
Breast: Deferred by me
Abdomen: Soft, Nontender, Nondistended, Normal Bowel Sounds and No Hepatosplenomegaly
Rectal: Deferred by Provider
Genito-urinary: No Costovertebral Tenderness, Bhakta catheter
Extremities: No Clubbing, No Cyanosis and No Edema
Skin: No Rash or open lesions
Neuro: Nonfocal/Grossly Intact, CN II-XII (Intact) and Strength (Musculoskeletal exam 5 out of 5 both upper and lower extremities)
Hematologic/Lymphatic: No Cervical Lymphadenopathy, No Submandibular Lymphadenopathy and No Supraclavicular Lymphadenopathy
Psych: Mood/afflect pleasant, Insight/judgement good and Appropriate
Vascular: plus 1 pedal and radial pulses
Data Reviewed
-
CT Scan: Report Reviewed by me (CT of abdomen and pelvis reviewed notable for bilateral renal cystic disease no obstructive uropathy, left renal cortical atrophy small extrarenal pelvis large exophytic cyst)
Medical Tests (Nuc Med, Echo etc): Other (EKG report reviewed sinus rhythm with PACs right bundle branch block at 71 bpm EKG report reviewed sinus rhythm with premature atrial complexes with right bundle branch block at 71 bpm)
Labs: Labs Reviewed by me (BMP CBC urine studies)
Old Records: Reviewed (Reviewed previous lab work from 01/17/2024 in EMR creatinine 1.9 Sodium 137)
Assessment/Plan
-
Impression:
Presentation with complaints of constipation and polyuria
Acute kidney injury (~3)
Hyponatremia (117)
CKD stage IIIb (~2)
Polyuria/BPH
Hypertension
Hyperkalemia
History of CVA
COPD
CAD with history of CABG
History of congestive heart failure
New onset A-fib
Anemia
Plan:
Hyponatremia:
- Urine osm of 116 more consistent with increased free water intake as opposed to SIADH
-Provided hypertonic saline with sodium rise from 117-125, maintain fluid restriction
-Follow-up with TSH re: hyponatremia workup
-Of note patient had significantly increased his fluid intake prior to admission
SANDRA:
-Bhakta catheter inserted for suspected obstructive uropathy
-I suspect creatinine will improve towards baseline
-ARB currently held, UA noted for 2+ albumin 1+ blood
Hypertension:
- Maintain hydralazine and Add Procardia if needed while ARB is held in setting of hyperkalemia
Hyperkalemia:
-ARB held
-lokelma if K rises
[2025-05-30] MEDS: ELIQUIS 2.5 MG PO ×2 (09:22→21:59)
[2025-05-30] MEDS: APRESOLINE 50 MG PO ×3 (09:22→22:15)
[2025-05-30] MEDS: LIPITOR 20 MG PO (09:22)
[2025-05-30] MEDS: VITAMIN D3 (cholecalciferol) 25 MCG PO (09:22)
[2025-05-30] MEDS: NOVOLOG FLEXPEN-LOW RESISTANCE SC ×2 (09:22→17:35)
[2025-05-30] MEDS: FLOMAX 0.4 MG PO (09:23)
[2025-05-30] MEDS: PEPCID 20 MG PO (09:23)
[2025-05-30 13:05] LABS: Glucose - Point of Care 174 mg/dl (70-99)
[2025-05-30] MEDS: NOVOLOG FLEXPEN-LOW RESISTANCE 1 UNITS SC (13:55)
--- NOTE | 2025-05-30 15:40 | CM ---
Addendum entered by Deena Mills 05/30/25 15:46:
IMM benefit explained to son, Gerardo, via phone; form dated and timed @ 1501
Original Note:
Patient confused; Initial assessment completed with patient's son, Gerardo, via phone
Pharmacy verified: [facility] @ [address] [facility]
Family Physician verified: Dr. Pedro Andrew; Address: [address] [place] [address] #[facility], [place] [address];
Lives alone; apartment @ [facility]; elevator access; bath has stall shower w/ shower chair and grab bar
PLOF: Son reported that patient was independent with ambulation and ADLs; drives
DME: [employer]
Son will provide transport home
[facility]; no home health utilization history
Plan: anticipate discharge to home when medically stable; employment case manager will monitor for needs and support coordination of services if recommended
[2025-05-30 17:17] LABS: Glucose - Point of Care 107 mg/dl (70-99)
[2025-05-30] MEDS: CARDIZEM CD 120 MG PO (17:35)
[2025-05-30 21:33] LABS: Glucose - Point of Care 152 mg/dl (70-99)
[2025-05-30] MEDS: STERILE WATER FOR INJECTION 10 ML IV (22:14)
[2025-05-30] MEDS: ROCEPHIN 1000 MG IV (22:15)
[2025-05-31] VITALS (38 sets, daily range): BP systolic 94–182; BP diastolic 51–102; BMI 24.4
[2025-05-31 05:43] LABS: Hematocrit 28.2 % (39.0-52.0); Hemoglobin 9.6 g/dL (13.0-18.0); Mean Corp Hgb Conc. 34.0 g/dL (33.0-37.0); Mean Corpuscular Volume 90.4 fL (80.0-94.0); Platelet Count 245 10^3/uL (130-400); Red Cell Dist. Width 14.6 % (11.5-14.5)
[2025-05-31 06:10] LABS: Blood Urea Nitrogen 31 mg/dl (9-20); Calcium 8.9 mg/dl (8.4-10.2); Carbon Dioxide 27 mmol/L (22-30); Chloride 102 mmol/L (98-107); Estimated Creatinine Clearance 14 ml/min; Glucose 99 mg/dl (70-99); Potassium 4.9 mmol/L (3.5-5.1); Sodium 132 mmol/L (135-145); eGFR 19.33
[2025-05-31 07:40] LABS: Glucose - Point of Care 96 mg/dl (70-99)
[2025-05-31] MEDS: SYMBICORT 80/4.5 MCG INHALER 2 PUFF INH ×2 (08:05→19:44)
[2025-05-31] MEDS: SPIRIVA RESPIMAT 2.5 MCG 2 PUFF INH (08:05)
[2025-05-31] MEDS: NOVOLOG FLEXPEN-LOW RESISTANCE SC ×2 (08:30→12:58)
[2025-05-31] MEDS: LIPITOR 20 MG PO (08:31)
[2025-05-31] MEDS: VITAMIN D3 (cholecalciferol) 25 MCG PO (08:31)
[2025-05-31] MEDS: FLOMAX 0.4 MG PO (08:31)
[2025-05-31] MEDS: ELIQUIS 2.5 MG PO ×2 (08:31→20:10)
[2025-05-31] MEDS: APRESOLINE 50 MG PO ×2 (08:31→18:09)
[2025-05-31] MEDS: CARDIZEM CD 120 MG PO (08:33)
--- NOTE | 2025-05-31 10:20 | W.PN.NEPH.PH ---
Today's Communication / Plan
-
follow lab sin am
Assessment/Plan
-
Impression:
Presentation with complaints of constipation and polyuria
Acute kidney injury (~3)
Hyponatremia (117)
CKD stage IIIb (~2)
Polyuria/BPH
Hypertension
Hyperkalemia
History of CVA
COPD
CAD with history of CABG
History of congestive heart failure
New onset A-fib
Anemia
Plan:
Hyponatremia:
likely from polydipsia and sodium improving to 132, will liberate FR to 48oz/day
TSH and cortisol were ok
cr stable over all, slightly higher than baseline (high 2 range)
hyperkalemia -resolved, cont to hold ARB
there is concern of possible urine retention, VT tomorrow if cr stable
he will likely need to see out pt-d/w pt , cont flomax
BP are labile, Diltiazem added on 05/30, meds with holding parameters
Afib-per cards
d/w pt and nursing
d/c plan
-
-
Date of Service: May 31, 2025
CC / HPI / ROS
-
Chief Complaint:
Ethan with CKD
History of Present Illness:
cr stable 3.1, k normal post
BP low post meds this am
U cx shows GNB
Review of Systems:
feels well
no cp or sob
was drinking >80ounces fluid with frequent urination
Labs
-
Labs:
WBC 10.1 10^3/uL (4.8-10.8) 05/31/25 05:22
RBC 3.12 10^6/uL (4.70-6.10) L 05/31/25 05:22
Hgb 9.6 g/dL (13.0-18.0) L 05/31/25 05:22
Hct 28.2 % (39.0-52.0) L 05/31/25 05:22
Plt Count 245 10^3/uL (130-400) 05/31/25 05:22
Sodium 132 mmol/L (135-145) L 05/31/25 05:22
Potassium 4.9 mmol/L (3.5-5.1) 05/31/25 05:22
Chloride 102 mmol/L (98-107) 05/31/25 05:22
Carbon Dioxide 27 mmol/L (22-30) 05/31/25 05:22
BUN 31 mg/dl (9-20) H 05/31/25 05:22
Creatinine 3.1 mg/dL (0.7-1.3) H 05/31/25 05:22
eGFR 19.33 05/31/25 05:22
Glucose 99 mg/dl (70-99) 05/31/25 05:22
Calcium 8.9 mg/dl (8.4-10.2) 05/31/25 05:22
Albumin 3.2 g/dl (3.5-5.0) L 05/29/25 17:20
Physical Exam
-
Vital Signs:
Vital Signs
Temp Pulse Resp BP Pulse Ox
98.1 F 96 18 94/52 99
05/31/25 11:09 05/31/25 10:32 05/31/25 10:32 05/31/25 10:32 05/31/25 10:49
Cardiovascular:: Regular rate and rhythm
Respiratory:: Bilateral: CTA
Lung Excursion:: Normal
Abdomen:: Nontender and Soft
Extremity Edema:: None: Bilateral:
Bhakta Catheter: No
--- NOTE | 2025-05-31 10:52 | CON.CAR ---
Addendum entered and electronically signed by Farhad Sears MD 05/31/25 14:55:
Patient seen and examined in collaboration with EXTRAS CASTING DIRECTOR; agree with below.
- 84-year-old male with coronary artery disease status-post remote CABG, previous recurrent CVAs (5; on chronic Eliquis), hypertension, IDDM, CKD, and COPD; cardiology consulted for possible atrial fibrillation.
- Upon review of environmental monitoring specialist with [facility], it appears that the patient does have paroxysmal atrial fibrillation.
- The patient is already on Eliquis; continue.
- Echocardiogram with normal cardiac function and no significant valvulopathy.
- Continue Cardizem CD 120 mg daily; can increase to 180 mg daily if needed for additional heart rate control (as blood pressure allows).
- No further cardiac recommendations at this time; patient can follow-up with his primary Medical Genetics Director as an outpatient.
Original Note:
Consultation
Consultation Request
Date/Time Consultation Requested: 05/31/25 9:45a
Date/Time Consultation Performed: 05/31/25 10:45a
Requesting Provider: Dr. Justice
Performing Provider: SAMIRA Ponce for Dr. Sears
Reason for Consultation: Afib
Medical History
-
Chief Complaint: constipation
History of Present Illness:
Mr. Meyer is an 84-year-old male (known to clay roaster Dr. Azar Woodard, in [facility]) with CAD s/p CABG (2012), previous CVA x5 (on chronic Eliquis), hypertension, insulin-dependent diabetes, CKD3, and COPD (45 pack years; quit 2022),
who presents to the ER with c/o constipation and urinary frequency. He is noted to have hyponatremia, hyperkalemia, and SANDRA, so he is admitted to the hospitalist service. We are consulted for possible Afib. EKG 05/29/25 shows SR with PACs, RBBB 71
bpm, then EKG 05/31/25 shows sinus tachycardia wtih blocked PACs, RBBB 91 bpm, inferior infarct. Tele shows the same. He denies any cardiac complaints.
Past Medical History
Past Medical History: Other (as above)
Past Surgical History: Cardiac (CABG 2012 )
Social History
Tobacco: Former Smoker (45 pack years, quit 2022)
Drug: None
Personal: Single
Employment: Retired
Family History
Family History: Reviewed & Not Pertinent
Allergies / Home Medications
Allergy/AdvReac Type Severity Reaction Status Date / Time
No Known Allergies Allergy Verified 05/29/25 17:11
�Medication �Instructions �Recorded �Confirmed �Type
apixaban 2.5 mg tablet (Eliquis) 2.5 mg PO BID Blood Clot 01/17/24 05/29/25 History
Prevention/Tx
cholecalciferol (vitamin D3) 25 25 mcg PO DAILY Supplement 01/17/24 05/29/25 History
mcg (1,000 unit) tablet (Vitamin
D3)
famotidine 20 mg tablet (Pepcid) 20 mg PO BID Gastrointestinal Issue 01/17/24 05/29/25 History
fluticasone fur. 100 mcg-umeclid 1 inh inhalation R DAILY 01/17/24 05/29/25 History
62.5 mcg-vilant 25 mcg Lung/Breathing Issues
inhalat.powder (Trelegy Ellipta)
semaglutide 1 mg/dose (4 mg/3 mL) 1 mg SC TH Diabetes 01/17/24 05/29/25 History
subcutaneous pen injector (Ozempic)
tamsulosin 0.4 mg capsule (Flomax) 0.4 mg PO DAILY Urinary Issue 01/17/24 05/29/25 History
atorvastatin 20 mg tablet (Lipitor) 20 mg PO DAILY High Cholesterol 05/29/25 05/29/25 History
hydralazine 50 mg tablet 50 mg PO BID Blood Pressure 05/29/25 05/29/25 History
losartan 100 mg tablet 100 mg PO DAILY Blood Pressure 05/29/25 05/29/25 History
Review of Systems
-
History Source: Patient
All other systems: Negative unless noted
Physical Exam
Vital Signs
Temp Pulse Resp BP Pulse Ox
97.8 F 96 18 94/52 99
05/31/25 07:59 05/31/25 10:32 05/31/25 10:32 05/31/25 10:32 05/31/25 10:49
Lab Results
05/31/25 05:22
05/31/25 05:22
Physical Exam
General: Well Developed and No Apparent Distress
HEENT: Normocephalic and Moist Mucous Membranes
Respiratory: Clear and Non Labored Respirations
Cardiac: S1/S2 and Regular Rhythm
Breast: Deferred by me
GI: Soft, Non Tender and Normal Bowel Sounds
Rectal: Deferred by Provider
Genito-urinary: Clear Urine
Musculoskeletal: No Clubbing, No Cyanosis and No Edema
Skin: Warm and Dry
Neuro: AO x 3
Psych: Calm
Impression / Plan
-
SR with PACs - on EKGs and tele.
- no Afib seen.
- continue to monitor on tele.
- already on Eliquis for CVA history.
HTN - stable on medical therapy, continue.
CAD - s/p CABG, stable.
- continue medical therapy.
SANDRA - acute on CKD 3b
- per nephrology.
Hyperkalemia - improved.
Hyponatremia - improved, nephrology following.
CVA - prior, on chronic Eliquis.
HLD - stable on Lipitor.
Urinary issues/bph - on flomax
Data Reviewed
-
EKG: Tracing Personally Visualized and interpreted (SR with pacs, RBBB. SR with blocked PACs, RBBB.)
Medical Tests (Nuc Med, Echo etc): Report Reviewed by me (echo 05/30/25: EF > 75%, trace MR, no change from echo 08/2022.)
Labs: Labs Reviewed by me
Old Records: Reviewed
--- NOTE | 2025-05-31 10:56 | PTCARENOTE ---
Patients heart rate elevated in the 110s this morning, irregular. Afib vs Sinus tach with ectopy. EKG completed, discussed with Dr. Justice. Patient was asymptomatic, denying chest pain or shortness of breath when asked. Sitting out of bed to chair.
--- NOTE | 2025-05-31 12:11 | W.PN.HOSP.TC ---
Today's Communication/Plan
-
Continue youth nutritional monitor.
Monitor kidney function.
Cardiology consult
Assessment / Plan
Assessment / Plan
Impression:
This is a 84-year-old with past medical history significant for CKD with baseline creatinine of around 2.5, prior CVA on anticoagulation with apixaban, BPH, COPD not on home O2, hypertension, CAD status post CABG, history of CHF who presents to the
emergency department with complains of constipation as well as urinary frequency was found to be SANDRA with severe hyponatremia. Patient is alert and oriented x 3. No focal neurological deficits.
Started on normal saline 3%, sodium level improved.
Nephrology consult.
Potassium was elevated but eventually improved.
Elevated creatinine.
Concern of A-fib, cardiology consult
Assessment/plan:
Hyponatremia -
Secondary to self hydration with hypotonic fluids.
Admitted to IMU
Urinary catheter placed
Started on hypertonic saline 3%
Sodium level improved
Appreciate nephrology input.
05/31
Sodium level improved
Hyperkalemia
Continue to monitor.
Hold losartan
05/31
Potassium level improved
Acute kidney injury on chronic kidney disease stage IV
Bhakta catheter inserted.
Hold losartan
consulted nephrology
05/31
Creatinine 3.1
Urinary retention -
Urinary catheter placed
Acute UTI
Urine culture negative bacilli
Pending final urine culture
Continue Rocephin
Paroxysmal A-fib-
Patient has history of A-fib.
Noted on admission of August 2022
Currently sinus tachycardia (questionable irregular rhythm)
Continue Eliquis
Added cardiazem 120 mg daily.
Cardiology consulted.
-echocardiogram shows:
1. Ejection fraction is greater than 75% by visual assessment.
2. Right ventricular size and systolic function are within normal limits.
3. Trace mitral valve regurgitation.
4. Compared to a prior transthoracic echocardiogram study from 09/27/22, no significant changes are seen.
Hypertension
- Continue hydralazine to 3 times daily
- Hold losartan for now
-added Cardizem for blood pressure/heart rate control
COPD -stable
-Continue Trelegy
Anemia.
Possible anemia of chronic disease.
Continue to monitor hemoglobin
CODE STATUS: Full code
DVT prophylaxis: apixaban
Diet: Regular diet
Disposition: Continue youth nutritional monitor.
Monitor kidney function.
Cardiology consult
Total time spent on today's encounter was 55 minutes which included time spent in counseling the patient/family regarding diagnosis and treatment plan as listed above, goals of care, and symptom management. Case was discussed with nursing staff,
specialists, and care coordinators/case management. All labs and imaging personally reviewed by me. Remainder the time spent in detailed review of previous records, lab data, imaging, and other medical provider documentation.
Anticipated Discharge: 24 - 48 hours
Subjective/Interval History
-
Date of Service: May 31, 2025
Patient seen and examined at bedside, sitting in a chair, overall feeling better, denies any chest pain or shortness of breath, no abdominal pain, no nausea, no vomiting, no diarrhea or constipation.
Objective Data
-
Labs:
Laboratory Results
05/31/25
05:22
WBC 10.1
Hgb 9.6 L
Hct 28.2 L
Plt Count 245
Sodium 132 L
Potassium 4.9
Chloride 102
Carbon Dioxide 27
BUN 31 H
Creatinine 3.1 H
Glucose 99
Calcium 8.9
Vital Signs:
Vital Signs
Temp Pulse Resp BP Pulse Ox
98.1 F 96 18 94/52 99
05/31/25 11:09 05/31/25 10:32 05/31/25 10:32 05/31/25 10:32 05/31/25 10:49
I&O
05/30/25 05/31/25 06/01/25
06:59 06:59 06:59
Intake Total 720 / 720
Output Total 1400 / 1400 1675 / 1675
Balance -1400 / -1400 -955 / -955
Physical Exam
-
General: Well Developed, Well Nourished, No Apparent Distress and Comfortable
HEENT: Normocephalic, Atraumatic, Moist Mucous Membranes, No Ptosis, PERRLA and Nose Appears Normal
Respiratory: Clear to Auscultation and Non Labored Respirations
Cardiac: Regular Rhythm and S1/S2
Breast: Deferred by me
GI: Soft, Nontender, Nondistended and Normal Bowel Sounds
Genito-urinary: No Costovertebral Tender
Musculoskeletal: No Clubbing, No Cyanosis and No Edema
Skin: Warm
Neuro: Awake, Alert, Oriented, AO x 3 and No Motor Deficits
Psych: Calm
[2025-05-31 12:23] LABS: Glucose - Point of Care 146 mg/dl (70-99)
--- NOTE | 2025-05-31 14:26 | CM ---
Following up on Patient. PT/OT has not completed their note yet. Progress note states that Medical Team will Continue monitor worker, Monitor kidney function, and consult Cardiology. Case Management to follow.
Patient was a [place] in 2022 and son can provide transport when ready.
PLAN: Home No Needs or PT vs. SNF
[2025-05-31 17:21] LABS: Glucose - Point of Care 158 mg/dl (70-99)
[2025-05-31] MEDS: NOVOLOG FLEXPEN-LOW RESISTANCE 1 UNITS SC (18:10)
[2025-05-31] MEDS: APRESOLINE 10 MG IV (20:10)
--- NOTE | 2025-05-31 20:53 | PTCARENOTE ---
Assumed care of patient from jacob RN. Pt aaox3. NSR on monitor with frequent PACs, irregular pulse, hr 60-80s. PRN IV Hydralazine administered for SBP > 170 (see MAR). Bhakta in place draining clear yellow urine, hygiene completed. Pt resting in
bed with call medina in reach.
[2025-05-31 21:46] LABS: Glucose - Point of Care 147 mg/dl (70-99)
[2025-05-31] MEDS: STERILE WATER FOR INJECTION 10 ML IV (22:09)
[2025-05-31] MEDS: ROCEPHIN 1000 MG IV (22:09)
[2025-06-01] VITALS (19 sets, daily range): BP systolic 132–192; BP diastolic 48–97; BMI 23.9
[2025-06-01] MEDS: APRESOLINE 10 MG IV (04:06)
[2025-06-01 05:02] LABS: Hematocrit 30.5 % (39.0-52.0); Hemoglobin 10.3 g/dL (13.0-18.0); Mean Corp Hgb Conc. 33.8 g/dL (33.0-37.0); Mean Corpuscular Volume 91.0 fL (80.0-94.0); Platelet Count 270 10^3/uL (130-400); Red Cell Dist. Width 14.6 % (11.5-14.5)
[2025-06-01 05:24] LABS: Blood Urea Nitrogen 34 mg/dl (9-20); Calcium 8.8 mg/dl (8.4-10.2); Carbon Dioxide 24 mmol/L (22-30); Chloride 105 mmol/L (98-107); Estimated Creatinine Clearance 14 ml/min; Glucose 125 mg/dl (70-99); Magnesium 1.9 mg/dl (1.6-2.3); Potassium 4.5 mmol/L (3.5-5.1); Sodium 134 mmol/L (135-145); eGFR 18.61
[2025-06-01] MEDS: SPIRIVA RESPIMAT 2.5 MCG 2 PUFF INH (07:45)
[2025-06-01] MEDS: SYMBICORT 80/4.5 MCG INHALER 2 PUFF INH ×2 (07:46→20:00)
[2025-06-01] MEDS: FLOMAX 0.4 MG PO (08:14)
[2025-06-01] MEDS: LIPITOR 20 MG PO (08:14)
[2025-06-01] MEDS: CARDIZEM CD 120 MG PO (08:14)
[2025-06-01] MEDS: ELIQUIS 2.5 MG PO ×2 (08:14→22:47)
[2025-06-01] MEDS: VITAMIN D3 (cholecalciferol) 25 MCG PO (08:14)
[2025-06-01] MEDS: PEPCID 20 MG PO (08:15)
[2025-06-01] MEDS: APRESOLINE 50 MG PO ×2 (08:15→16:49)
[2025-06-01 08:34] LABS: Glucose - Point of Care 113 mg/dl (70-99)
[2025-06-01] MEDS: NOVOLOG FLEXPEN-LOW RESISTANCE SC ×3 (10:09→16:51)
--- NOTE | 2025-06-01 11:07 | W.PN.NEPH.PH ---
Today's Communication / Plan
-
monitor labs
Assessment/Plan
-
Impression:
Presentation with complaints of constipation and polyuria
Acute kidney injury (~3)
Hyponatremia (117)
CKD stage IIIb (~2)
Polyuria/BPH
Hypertension
Hyperkalemia
History of CVA
COPD
CAD with history of CABG
History of congestive heart failure
New onset A-fib
Anemia
Plan:
Hyponatremia:
likely from polydipsia and sodium improving to 134, FR to 48oz/day
TSH and cortisol were ok
cr up trending slowly-suspect hemodynamic with afib
cont to hold ARB
there is concern of possible urine retention, VT today
he will likely need to see out pt-d/w pt , cont flomax
BP are labile, Diltiazem added on 05/30, hydralazine with holding parameters
Afib-per cards
ok for laxatives, stool softeners for constipation
d/w pt
-
-
Date of Service: June 01, 2025
CC / HPI / ROS
-
Chief Complaint:
Ethan with CKD
History of Present Illness:
cr up 3.2, k normal
BP labile
U cx shows ESBl E coli
Review of Systems:
feels well
no cp or sob
c/o constipation
Labs
-
Labs:
WBC 11.9 10^3/uL (4.8-10.8) H 06/01/25 04:40
RBC 3.35 10^6/uL (4.70-6.10) L 06/01/25 04:40
Hgb 10.3 g/dL (13.0-18.0) L 06/01/25 04:40
Hct 30.5 % (39.0-52.0) L 06/01/25 04:40
Plt Count 270 10^3/uL (130-400) 06/01/25 04:40
Sodium 134 mmol/L (135-145) L 06/01/25 04:40
Potassium 4.5 mmol/L (3.5-5.1) 06/01/25 04:40
Chloride 105 mmol/L (98-107) 06/01/25 04:40
Carbon Dioxide 24 mmol/L (22-30) 06/01/25 04:40
BUN 34 mg/dl (9-20) H 06/01/25 04:40
Creatinine 3.2 mg/dL (0.7-1.3) H 06/01/25 04:40
eGFR 18.61 06/01/25 04:40
Glucose 125 mg/dl (70-99) H 06/01/25 04:40
Calcium 8.8 mg/dl (8.4-10.2) 06/01/25 04:40
Albumin 3.2 g/dl (3.5-5.0) L 05/29/25 17:20
Physical Exam
-
Vital Signs:
Vital Signs
Temp Pulse Resp BP Pulse Ox
97.4 F 99 16 139/70 97
06/01/25 07:05 06/01/25 10:00 06/01/25 10:00 06/01/25 10:00 06/01/25 10:23
Cardiovascular:: Regular rate and rhythm
Respiratory:: Bilateral: CTA
Lung Excursion:: Normal
Abdomen:: Nontender and Soft
Extremity Edema:: None: Bilateral:
Bhakta Catheter: No
--- NOTE | 2025-06-01 12:35 | W.PN.HOSP.TC ---
Today's Communication/Plan
-
Continue color television console monitor.
Monitor kidney function.
Increased Cardizem to 180 daily.
Started doxycycline for ESBL
Assessment / Plan
Assessment / Plan
Impression:
This is a 84-year-old with past medical history significant for CKD with baseline creatinine of around 2.5, prior CVA on anticoagulation with apixaban, BPH, COPD not on home O2, hypertension, CAD status post CABG, history of CHF who presents to the
emergency department with complains of constipation as well as urinary frequency was found to be SANDRA with severe hyponatremia. Patient is alert and oriented x 3. No focal neurological deficits.
Started on normal saline 3%, sodium level improved.
Nephrology consult.
Potassium was elevated but eventually improved.
Elevated creatinine.
Concern of A-fib, cardiology consult
No indication of A-fib on color television console monitor.
Patient was started on Cardizem 120 mg but still tachycardic will increase to 180 mg
Assessment/plan:
Hyponatremia -
Secondary to self hydration with hypotonic fluids.
Admitted to IMU
Urinary catheter placed
Started on hypertonic saline 3%
Sodium level improved
Appreciate nephrology input.
05/31
Sodium level improved
Hyperkalemia
Continue to monitor.
Hold losartan
05/31
Potassium level improved
Acute kidney injury on chronic kidney disease stage IV
Bhakta catheter inserted.
Hold losartan
consulted nephrology
05/31
Creatinine 3.1
Urinary retention -
Urinary catheter placed
Acute UTI (ESBL)
Urine culture negative bacilli
Pending final urine culture
Continue Rocephin
06/01
Culture came back ESBL sensitive to tetracycline.
Will start doxycycline 100 g twice daily and discontinue Rocephin.
Paroxysmal A-fib-
Patient has history of A-fib.
Noted on admission of August 2022
Currently sinus tachycardia (questionable irregular rhythm)
Continue Eliquis
Added cardiazem 120 mg daily.
Cardiology consulted.
-echocardiogram shows:
1. Ejection fraction is greater than 75% by visual assessment.
2. Right ventricular size and systolic function are within normal limits.
3. Trace mitral valve regurgitation.
4. Compared to a prior transthoracic echocardiogram study from 09/27/22, no significant changes are seen.
06/01
Still with significant tachycardia.
Will increase Cardizem to 180 daily
Hypertension
- Continue hydralazine to 3 times daily
- Hold losartan for now
-added Cardizem for blood pressure/heart rate control---> increased to 180
COPD -stable
-Continue Trelegy
Anemia.
Possible anemia of chronic disease.
Continue to monitor hemoglobin
CODE STATUS: Full code
DVT prophylaxis: apixaban
Diet: Regular diet
Disposition: Continue color television console monitor.
Monitor kidney function.
Increased Cardizem to 180 daily.
Started doxycycline for ESBL
Total time spent on today's encounter was 55 minutes which included time spent in counseling the patient/family regarding diagnosis and treatment plan as listed above, goals of care, and symptom management. Case was discussed with nursing staff,
specialists, and care coordinators/case management. All labs and imaging personally reviewed by me. Remainder the time spent in detailed review of previous records, lab data, imaging, and other medical provider documentation.
Anticipated Discharge: 24 - 48 hours
Subjective/Interval History
-
Date of Service: June 01, 2025
Patient seen and examined at bedside, denies any chest pain or shortness of breath, no abdominal pain, no nausea, no vomiting, no diarrhea or constipation.
Objective Data
-
Labs:
Laboratory Results
06/01/25
04:40
WBC 11.9 H
Hgb 10.3 L
Hct 30.5 L
Plt Count 270
Sodium 134 L
Potassium 4.5
Chloride 105
Carbon Dioxide 24
BUN 34 H
Creatinine 3.2 H
Glucose 125 H
Calcium 8.8
Vital Signs:
Vital Signs
Temp Pulse Resp BP Pulse Ox
97.7 F 99 16 139/70 97
06/01/25 11:10 06/01/25 10:00 06/01/25 10:00 06/01/25 10:00 06/01/25 10:23
I&O
05/31/25 06/01/25 06/02/25
06:59 06:59 06:59
Intake Total 720 / 720 660 / 660
Output Total 1675 / 1675 800 / 800
Balance -955 / -955 -140 / -140
Physical Exam
-
General: Well Developed, Well Nourished, No Apparent Distress and Comfortable
HEENT: Normocephalic, Atraumatic, Moist Mucous Membranes, No Ptosis, PERRLA and Nose Appears Normal
Respiratory: Clear to Auscultation and Non Labored Respirations
Cardiac: Regular Rhythm and S1/S2
Breast: Deferred by me
GI: Soft, Nontender, Nondistended and Normal Bowel Sounds
Genito-urinary: No Costovertebral Tender
Musculoskeletal: No Clubbing, No Cyanosis and No Edema
Skin: Warm
Neuro: Awake, Alert, Oriented, AO x 3 and No Motor Deficits
Psych: Calm
[2025-06-01 14:14] LABS: Glucose - Point of Care 137 mg/dl (70-99)
[2025-06-01] MEDS: CARDIZEM SR 60 MG PO (14:15)
[2025-06-01] MEDS: VIBRAMYCIN 100 MG PO ×2 (14:15→22:47)
[2025-06-01] MEDS: SENOKOT-S 1 TABLET PO (14:19)
[2025-06-01 17:02] LABS: Glucose - Point of Care 148 mg/dl (70-99)
[2025-06-01 22:15] LABS: Glucose - Point of Care 165 mg/dl (70-99)
[2025-06-02] VITALS (8 sets, daily range): BP systolic 147–165; BP diastolic 60–82; PULSE 91; O2SAT 99; BMI 23.9
--- NOTE | 2025-06-02 00:29 | PTCARENOTE ---
Assumed care of patient from jacob RN. Pt aaox3. NSR on monitor with frequent PACs, irregular pulse, hr 70-90s. SpO2 99% on RA. Pt resting in bed with call medina in reach.
[2025-06-02 04:04] LABS: Hematocrit 30.9 % (39.0-52.0); Hemoglobin 10.2 g/dL (13.0-18.0); Mean Corp Hgb Conc. 33.0 g/dL (33.0-37.0); Mean Corpuscular Volume 92.2 fL (80.0-94.0); Platelet Count 255 10^3/uL (130-400); Red Cell Dist. Width 14.6 % (11.5-14.5)
[2025-06-02 04:27] LABS: Blood Urea Nitrogen 37 mg/dl (9-20); Calcium 9.0 mg/dl (8.4-10.2); Carbon Dioxide 26 mmol/L (22-30); Chloride 102 mmol/L (98-107); Estimated Creatinine Clearance 14 ml/min; Glucose 120 mg/dl (70-99); Magnesium 1.7 mg/dl (1.6-2.3); Potassium 4.6 mmol/L (3.5-5.1); Sodium 133 mmol/L (135-145); eGFR 19.33
[2025-06-02] MEDS: SYMBICORT 80/4.5 MCG INHALER 2 PUFF INH (07:35)
[2025-06-02] MEDS: SPIRIVA RESPIMAT 2.5 MCG 2 PUFF INH (07:35)
[2025-06-02 08:48] LABS: Glucose - Point of Care 122 mg/dl (70-99)
[2025-06-02] MEDS: LIPITOR 20 MG PO (08:55)
[2025-06-02] MEDS: VITAMIN D3 (cholecalciferol) 25 MCG PO (08:55)
[2025-06-02] MEDS: FLOMAX 0.4 MG PO (08:55)
[2025-06-02] MEDS: ELIQUIS 2.5 MG PO (08:55)
[2025-06-02] MEDS: NOVOLOG FLEXPEN-LOW RESISTANCE SC ×2 (08:55→12:22)
[2025-06-02] MEDS: APRESOLINE 50 MG PO (08:55)
[2025-06-02] MEDS: CARDIZEM CD 180 MG PO (08:56)
[2025-06-02] MEDS: VIBRAMYCIN 100 MG PO (08:56)
--- NOTE | 2025-06-02 10:44 | PTCARENOTE ---
Pt AAOx3 ambulating to BR with RW. [place] with HAYES, irr HR . On RA at 98%. Awaitib=ng DC orders
[2025-06-02 11:59] LABS: Glucose - Point of Care 164 mg/dl (70-99)
--- NOTE | 2025-06-02 12:00 | W.PN.NEPH.PH ---
Today's Communication / Plan
-
d/c per primary
BMP in 1week
f/u nephro
Assessment/Plan
-
Impression:
Presentation with complaints of constipation and polyuria
Acute kidney injury (~3)
Hyponatremia (117)
CKD stage IIIb (~2)
Polyuria/BPH
Hypertension
Hyperkalemia
History of CVA
COPD
CAD with history of CABG
History of congestive heart failure
New onset A-fib
Anemia
Plan:
Hyponatremia:
likely from polydipsia and sodium stable at 133, FR to 48oz/day
TSH and cortisol were ok
cr remains higher than baseline but stable since admit-suspect hemodynamic with afib
cont to hold ARB
follow bladder scan off castillo
he suggested to see out pt-d/w pt , cont flomax
BP are labile, Diltiazem added on 05/30, hydralazine with holding parameters
Afib-per cards
ok for laxatives, stool softeners for constipation
d/w pt
f/u nephro Dr Estrada
-
-
Date of Service: June 02, 2025
CC / HPI / ROS
-
Chief Complaint:
Ethan with CKD
History of Present Illness:
cr stable at 3.1, k normal, na stable at 133
BP stable
U cx shows ESBl E coli
Review of Systems:
feels well
no cp or sob
c/o constipation
Labs
-
Labs:
WBC 11.8 10^3/uL (4.8-10.8) H 06/02/25 03:34
RBC 3.35 10^6/uL (4.70-6.10) L 06/02/25 03:34
Hgb 10.2 g/dL (13.0-18.0) L 06/02/25 03:34
Hct 30.9 % (39.0-52.0) L 06/02/25 03:34
Plt Count 255 10^3/uL (130-400) 06/02/25 03:34
Sodium 133 mmol/L (135-145) L 06/02/25 03:34
Potassium 4.6 mmol/L (3.5-5.1) 06/02/25 03:34
Chloride 102 mmol/L (98-107) 06/02/25 03:34
Carbon Dioxide 26 mmol/L (22-30) 06/02/25 03:34
BUN 37 mg/dl (9-20) H 06/02/25 03:34
Creatinine 3.1 mg/dL (0.7-1.3) H 06/02/25 03:34
eGFR 19.33 06/02/25 03:34
Glucose 120 mg/dl (70-99) H 06/02/25 03:34
Calcium 9.0 mg/dl (8.4-10.2) 06/02/25 03:34
Albumin 3.2 g/dl (3.5-5.0) L 05/29/25 17:20
Physical Exam
-
Vital Signs:
Vital Signs
Temp Pulse Resp BP Pulse Ox
97.5 F 86 18 156/62 98
06/02/25 11:52 06/02/25 10:00 06/02/25 07:39 06/02/25 10:00 06/02/25 08:00
Cardiovascular:: Regular rate and rhythm
Respiratory:: Bilateral: CTA
Lung Excursion:: Normal
Abdomen:: Nontender and Soft
Extremity Edema:: None: Bilateral:
Castillo Catheter: No
--- NOTE | 2025-06-02 12:02 | W.PN.HOSP.TC ---
Today's Communication/Plan
-
Medically cleared for Dc
Assessment / Plan
Assessment / Plan
Impression:
This is a 84-year-old with past medical history significant for CKD with baseline creatinine of around 2.5, prior CVA on anticoagulation with apixaban, BPH, COPD not on home O2, hypertension, CAD status post CABG, history of CHF who presents to the
emergency department with complains of constipation as well as urinary frequency was found to be SANDRA with severe hyponatremia. Patient is alert and oriented x 3. No focal neurological deficits.
Started on normal saline 3%, sodium level improved.
Nephrology consult.
Potassium was elevated but eventually improved.
Elevated creatinine.
Concern of A-fib, cardiology consult
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
Patient was started on Cardizem 120 mg but still tachycardic will increase to 180 mg
Blood pressure and heart rate improved.
Urine came back positive for ESBL, started doxycycline.
Assessment/plan:
Hyponatremia -
Secondary to self hydration with hypotonic fluids.
Admitted to IMU
Urinary catheter placed
Started on hypertonic saline 3%
Sodium level improved
Appreciate nephrology input.
05/31
Sodium level improved
Hyperkalemia
Continue to monitor.
Hold losartan
05/31
Potassium level improved
Acute kidney injury on chronic kidney disease stage IV
Bhakta catheter inserted.
Hold losartan
consulted nephrology
05/31
Creatinine 3.1
Urinary retention -
Urinary catheter placed
Acute UTI (ESBL)
Urine culture negative bacilli
Pending final urine culture
Continue Rocephin
06/01
Culture came back ESBL sensitive to tetracycline.
Will start doxycycline 100 g twice daily and discontinue Rocephin.
Paroxysmal A-fib-
Patient has history of A-fib.
Noted on admission of August 2022
Currently sinus tachycardia (questionable irregular rhythm)
Continue Eliquis
Added cardiazem 120 mg daily.
Cardiology consulted.
-echocardiogram shows:
1. Ejection fraction is greater than 75% by visual assessment.
2. Right ventricular size and systolic function are within normal limits.
3. Trace mitral valve regurgitation.
4. Compared to a prior transthoracic echocardiogram study from 09/27/22, no significant changes are seen.
06/01
Still with significant tachycardia.
Will increase Cardizem to 180 daily
06/02
Blood pressure and heart rate improved
Hypertension
- Continue hydralazine to 3 times daily
- Hold losartan for now
-added Cardizem for blood pressure/heart rate control---> increased to 180
COPD -stable
-Continue Trelegy
Anemia.
Possible anemia of chronic disease.
Continue to monitor hemoglobin
CODE STATUS: Full code
DVT prophylaxis: apixaban
Diet: Regular diet
Disposition: Medically cleared for discharge
Total time spent on today's encounter was 55 minutes which included time spent in counseling the patient/family regarding diagnosis and treatment plan as listed above, goals of care, and symptom management. Case was discussed with nursing staff,
specialists, and care coordinators/case management. All labs and imaging personally reviewed by me. Remainder the time spent in detailed review of previous records, lab data, imaging, and other medical provider documentation.
Anticipated Discharge: Today
Subjective/Interval History
-
Date of Service: June 02, 2025
Patient seen and examined at bedside, denies any chest pain or shortness of breath, no abdominal pain, no nausea, no vomiting, no diarrhea or constipation.
Objective Data
-
Labs:
Laboratory Results
06/02/25
03:34
WBC 11.8 H
Hgb 10.2 L
Hct 30.9 L
Plt Count 255
Sodium 133 L
Potassium 4.6
Chloride 102
Carbon Dioxide 26
BUN 37 H
Creatinine 3.1 H
Glucose 120 H
Calcium 9.0
Vital Signs:
Vital Signs
Temp Pulse Resp BP Pulse Ox
97.5 F 86 18 156/62 98
06/02/25 11:52 06/02/25 10:00 06/02/25 07:39 06/02/25 10:00 06/02/25 08:00
I&O
06/01/25 06/02/25 06/03/25
06:59 06:59 06:59
Intake Total 660 / 660 1080 / 1080
Output Total 800 / 800 251 / 251
Balance -140 / -140 829 / 829
Physical Exam
-
General: Well Developed, Well Nourished, No Apparent Distress and Comfortable
HEENT: Normocephalic, Atraumatic, Moist Mucous Membranes, No Ptosis, PERRLA and Nose Appears Normal
Respiratory: Clear to Auscultation and Non Labored Respirations
Cardiac: Regular Rhythm and S1/S2
Breast: Deferred by me
GI: Soft, Nontender, Nondistended and Normal Bowel Sounds
Genito-urinary: No Costovertebral Tender
Musculoskeletal: No Clubbing, No Cyanosis and No Edema
Skin: Warm
Neuro: Awake, Alert, Oriented, AO x 3 and No Motor Deficits
Psych: Calm
--- NOTE | 2025-06-02 12:09 | W.DCSUMMARY ---
Discharge Summary
Discharge Data
Date of Admission: 05/29/25
Date of Discharge: 06/02/25
Total time spent discharging patient (in min): 40
-
Pending Results: No
Hospital Course
Hospital course
This is a 84-year-old with past medical history significant for CKD with baseline creatinine of around 2.5, prior CVA on anticoagulation with apixaban, BPH, COPD not on home O2, hypertension, CAD status post CABG, history of CHF who presents to the
emergency department with complains of constipation as well as urinary frequency was found to be SANDRA with severe hyponatremia. Patient is alert and oriented x 3. No focal neurological deficits.
Started on normal saline 3%, sodium level improved.
Nephrology consult.
Potassium was elevated but eventually improved.
Elevated creatinine.
Concern of A-fib, cardiology consult
No indication of A-fib on personnel monitor.
Patient was started on Cardizem 120 mg but still tachycardic will increase to 180 mg
Blood pressure and heart rate improved.
Urine came back positive for ESBL, started doxycycline
During hospitalization patient was treated from the following
Hyponatremia -
Secondary to self hydration with hypotonic fluids.
Admitted to IMU
Urinary catheter placed
Started on hypertonic saline 3%
Sodium level improved
Appreciate nephrology input.
05/31
Sodium level improved
Hyperkalemia
Continue to monitor.
Hold losartan
05/31
Potassium level improved
Acute kidney injury on chronic kidney disease stage IV
Bhakta catheter inserted.
Hold losartan
consulted nephrology
05/31
Creatinine 3.1
Urinary retention -
Urinary catheter placed
Acute UTI (ESBL)
Urine culture negative bacilli
Pending final urine culture
Continue Rocephin
06/01
Culture came back ESBL sensitive to tetracycline.
Will start doxycycline 100 g twice daily and discontinue Rocephin.
Paroxysmal A-fib-
Patient has history of A-fib.
Noted on admission of August 2022
Currently sinus tachycardia (questionable irregular rhythm)
Continue Eliquis
Added cardiazem 120 mg daily.
Cardiology consulted.
-echocardiogram shows:
1. Ejection fraction is greater than 75% by visual assessment.
2. Right ventricular size and systolic function are within normal limits.
3. Trace mitral valve regurgitation.
4. Compared to a prior transthoracic echocardiogram study from 09/27/22, no significant changes are seen.
06/01
Still with significant tachycardia.
Will increase Cardizem to 180 daily
06/02
Blood pressure and heart rate improved
Hypertension
- Continue hydralazine to 3 times daily
- Hold losartan for now
-added Cardizem for blood pressure/heart rate control---> increased to 180
COPD -stable
-Continue Trelegy
Anemia.
Possible anemia of chronic disease.
Continue to monitor hemoglobin
CODE STATUS: Full code
DVT prophylaxis: apixaban
Diet: Regular diet
Disposition: Medically cleared for discharge.
Total time spent on today's encounter was 40 minutes which included time spent in counseling the patient/family regarding diagnosis and treatment plan as listed above, goals of care, and symptom management. Case was discussed with nursing staff,
specialists, and care coordinators/case management. All labs and imaging personally reviewed by me. Remainder the time spent in detailed review of previous records, lab data, imaging, and other medical provider documentation.
Anticipated Discharge: Today
Discharge Plan
-
Patient Disposition: Home with Home Care
Discharge Diagnosis/Procedures: Acute renal failure.
Hyperkalemia.
Diet: As tolerated, Low Cholesterol and Low Sodium
Activity: With assistance and As tolerated
Blood Work: Need to repeat BMP after 1 week will follow-up with nephrology as outpatient
Other Services: PT and OT
Referrals:
PCP [Other] - in less than 1 week
Farhad Sears MD [Active, Cardiology] - in three to four weeks
Rebecca Estrada MD [Active, Nephrology] - in one to two weeks
Prescriptions:
New
doxycycline hyclate 100 mg Capsule
100 mg PO Q12 5 Days Qty: 10 0RF
diltiazem HCl 180 mg Capsule,Extended Release 24hr
180 mg PO DAILY 30 Days Qty: 30 0RF
Continued
famotidine [Pepcid] 20 mg Tablet
20 mg PO BID
tamsulosin [Flomax] 0.4 mg Capsule
0.4 mg PO DAILY
cholecalciferol (vitamin D3) [Vitamin D3] 25 mcg (1,000 unit) Tablet
25 mcg PO DAILY
Eliquis 2.5 mg Tablet
2.5 mg PO BID
Trelegy Ellipta 100-62.5-25 mcg Blister With Device
1 inh INHALATION R DAILY
Ozempic 1 mg/dose (4 mg/3 mL) Pen Injector
1 mg SC TH
atorvastatin [Lipitor] 20 mg Tablet
20 mg PO DAILY
hydralazine 50 mg Tablet
50 mg PO BID
Discontinued
losartan 100 mg Tablet
100 mg PO DAILY
Discharge Orders:
Discharge Patient (As Directed); Ordered 06/02/25
Ordered By: Reshma Chacko
Discharge Date and Time
Print Language: IRISH
[2025-06-02] MEDS: FLUZONE HIGH-DOSE 2025-26 0.5 ML IM (12:23)
--- NOTE | 2025-06-02 12:30 | CM ---
Following up on Patient. ELAINE Marc met with patient to ask if he wanted Home PT and he refused. IMM Completed. PLAN: Home No Needs.
--- NOTE | 2025-06-02 13:30 | PTCARENOTE ---
Pt 1130 accu check 162, pt refused insulin stated he is not a diabetic and the accu check was probably done wrong. Pt did agree to flu shot it was given. Now agreeing to PT . Pt will see pt abouit 2 pm. Pt refusing lunch.
--- NOTE | 2025-06-02 14:28 | PTCARENOTE ---
Pt given DC instructions Cardizen and Vibramuycin being sent to [facility], Pt will see [facility] own [facility].
--- NOTE | 2025-06-02 15:15 | PTCARENOTE ---
Pt left via [facility] .
== END 2025-06-02 15:15 | disposition home health service (06) | DRG 683 ==
LOC: IMU 22:03
PROVIDERS: Emergency Medicine; ADMITTING PHYSICIAN Internal Medicine; ATTENDING PHYSICIAN General Practice; CONSULT PHYSICIAN Internal Medicine; CONSULT PHYSICIAN Specialist; EMERGENCY PHYSICIAN Emergency Medicine
PROC: 3E02340 Introduction of Influenza Vaccine into Muscle, Percutaneous Approach (ICD-10-PCS; 2025-06-02)
DX: N17.9 Acute kidney failure, unspecified (principal); E87.1 Hypo-osmolality and hyponatremia; I13.0 Hypertensive heart and chronic kidney disease with heart failure and stage 1 through stage 4 chronic kidney disease, or unspecified chronic kidney disease; N39.0 Urinary tract infection, site not specified; Z16.12 Extended spectrum beta lactamase (ESBL) resistance; Q61.9 Cystic kidney disease, unspecified; E87.5 Hyperkalemia; Z95.1 Presence of aortocoronary bypass graft; I25.10 Atherosclerotic heart disease of native coronary artery without angina pectoris; I50.9 Heart failure, unspecified; N18.4 Chronic kidney disease, stage 4 (severe); B96.20 Unspecified Escherichia coli [E. coli] as the cause of diseases classified elsewhere; I48.0 Paroxysmal atrial fibrillation; J44.9 Chronic obstructive pulmonary disease, unspecified; D63.1 Anemia in chronic kidney disease; Z86.73 Personal history of transient ischemic attack (TIA), and cerebral infarction without residual deficits; Z79.01 Long term (current) use of anticoagulants; Z87.891 Personal history of nicotine dependence; Z63.4 Disappearance and death of family member; Z82.49 Family history of ischemic heart disease and other diseases of the circulatory system; E11.22 Type 2 diabetes mellitus with diabetic chronic kidney disease; E78.00 Pure hypercholesterolemia, unspecified; H91.93 Unspecified hearing loss, bilateral; N40.0 Benign prostatic hyperplasia without lower urinary tract symptoms; Z79.85 Long-term (current) use of injectable non-insulin antidiabetic drugs; Z79.899 Other long term (current) drug therapy; Z23 Encounter for immunization
CPT/HCPCS: 74176; 80048; 80053; 81003; 81015; 82533; 82962; 83735; 83930; 83935; 84300; 84443; 85025; 85027; 87077; 87086; 87186; 90662; 93005; 93306; 94640; 97162; 99291; G0008